=== PATIENT | male | born 1945 | race Caucasian/White ===

== ENCOUNTER → 2016-08-14 | Outpatient (CLI) | payer BC ==
[~2016-08-14] MED LIST: ASPI1TAB48 PO; CARV12.52 PO; CYAN10005 PO; ECON0.05 TD; GLIM2TAB2 PO; INSHNI SC; LIRA18IN INJ; LOSA50TA6 PO; LPT/40 PO; METF1000 PO; OXYC-57 PO
[2016-08-14 10:17] LABS: ALT/SGPT 22 U/L (12-78); BLOOD UREA NITROGEN 22 mg/dl (7-18); CALCIUM 9.1 mg/dl (8.5-10.1); CARBON DIOXIDE 28 mmol/L (21-32); CHLORIDE 105 mmol/L (98-107); CHOLESTEROL 123 mg/dl (0-200); GLUCOSE 172 mg/dl (70-99); POTASSIUM 4.4 mmol/L (3.5-5.1); SODIUM 140 mmol/L (136-145); TRIGLYCERIDES 147 mg/dl (0-150); VERY LOW DENSITY LIPOPROT CALC 29 mg/dl
[2016-08-14 10:28] LABS: ALB/GLOB RATIO 0.9 (0.9-2); ALKALINE PHOSPHATASE 60 U/L (45-117); AST/SGOT 19 U/L (15-37); CHOLESTEROL/HDL RATIO 3.6; HDL CHOLESTEROL 34 mg/dl; LDL CHOLESTEROL CALCULATED 60 mg/dl
[2016-08-14 10:39] LABS: RATIO 8.1 mcg/mg (0-30.0)
[2016-08-14 11:09] LABS: ESTIMATED AVERAGE GLUCOSE 157 mg/dl; HA1C FLAG Normal (Normal)
== END | disposition home or self-care (01) ==
LOC: C.LAB1850 08:42
PROVIDERS: ATTEND Nurse Practitioner Adult Health
DX: I10 Essential (primary) hypertension (principal); E78.5 Hyperlipidemia, unspecified; E11.8 Type 2 diabetes mellitus with unspecified complications; E55.9 Vitamin D deficiency, unspecified

== ENCOUNTER → 2016-11-22 | Outpatient (CLI) | payer BC ==
[2016-11-22 10:07] LABS: BASO % 0.6 %; BASO ABS # 0.05 K/uL (0-0.2); COMPLETE YES; EOS % 3.9 %; HEMATOCRIT 40.8 % (42-52); IG% 0.2 %; LYMPH % 25.7 %; LYMPH ABS # 2.32 K/uL (1.2-3.4); MEAN CELL VOLUME 94.4 fL (80-100); MEAN CORPUSCULAR HEMOGLOBIN 31.7 pg (25-34); MEAN CORPUSCULAR HGB CONC 33.6 g/dl (32-36); MEAN PLATELET VOLUME 9.4 fL (7.4-10.4); NEUT % 57.6 %; PLATELET COUNT 302 K/uL (130-400); RED BLOOD COUNT 4.32 M/uL (4.7-6.1); WHITE BLOOD COUNT 9.01 K/uL (4.8-10.8)
[2016-11-22 10:22] LABS: ESTIMATED AVERAGE GLUCOSE 148 mg/dl; HA1C FLAG Normal (Normal)
== END | disposition home or self-care (01) ==
LOC: C.LAB1850 09:29
PROVIDERS: ATTEND Internal Medicine
DX: D64.9 Anemia, unspecified (principal); E11.49 Type 2 diabetes mellitus with other diabetic neurological complication

== ENCOUNTER → 2017-02-21 | Outpatient (CLI) | payer BC ==
[2017-02-21 14:40] LABS: BASO % 0.6 %; BASO ABS # 0.05 K/uL (0-0.2); COMPLETE YES; EOS % 5.1 %; HEMATOCRIT 45.3 % (42-52); IG% 0.5 %; LYMPH % 28.1 %; LYMPH ABS # 2.37 K/uL (1.2-3.4); MEAN CELL VOLUME 94.4 fL (80-100); MEAN CORPUSCULAR HGB CONC 32.9 g/dl (32-36); MONO % 10.3 %; NEUT % 55.4 %; PLATELET COUNT 255 K/uL (130-400); WHITE BLOOD COUNT 8.44 K/uL (4.8-10.8)
[2017-02-21 15:01] LABS: ESTIMATED AVERAGE GLUCOSE 148 mg/dl; HA1C FLAG Normal (Normal)
[2017-02-21 15:11] LABS: ALT/SGPT 16 U/L (12-78); AST/SGOT 17 U/L (15-37); BLOOD UREA NITROGEN 14 mg/dl (7-18); BUN/CREATININE RATIO 12.9 (10-20); CALCIUM 9.4 mg/dl (8.5-10.1); CARBON DIOXIDE 32 mmol/L (21-32); CHLORIDE 101 mmol/L (98-107); GLUCOSE 230 mg/dl (70-99); POTASSIUM 4.8 mmol/L (3.5-5.1); SODIUM 136 mmol/L (136-145)
[2017-02-21 15:13] LABS: ALB/GLOB RATIO 0.8 (0.9-2); ALKALINE PHOSPHATASE 73 U/L (45-117)
== END | disposition home or self-care (01) ==
LOC: C.LAB1850 13:15
PROVIDERS: ATTEND Nurse Practitioner Adult Health
DX: E11.49 Type 2 diabetes mellitus with other diabetic neurological complication (principal); D64.9 Anemia, unspecified; Z79.4 Long term (current) use of insulin

== ENCOUNTER → 2017-05-24 | Outpatient (CLI) | payer BC ==
[2017-05-24 09:43] LABS: HEMOGLOBIN A1C 6.7 % (4.5-5.6)
[2017-05-24 09:45] LABS: ALBUMIN 3.5 gm/dl (3.4-5.0); ALT/SGPT 17 U/L (12-78); AST/SGOT 16 U/L (15-37); BLOOD UREA NITROGEN 20 mg/dl (7-18); CALCIUM 9.2 mg/dl (8.5-10.1); CARBON DIOXIDE 30 mmol/L (21-32); CREATININE 1.03 mg/dl (0.60-1.40); GLUCOSE 60 mg/dl (70-99); POTASSIUM 4.7 mmol/L (3.5-5.1); SODIUM 137 mmol/L (136-145)
[2017-05-24 09:50] LABS: CREATININE RANDOM URINE < 13.0 mg/dl
[2017-05-24 09:56] LABS: ALKALINE PHOSPHATASE 72 U/L (45-117); CHOLESTEROL 101 mg/dl (0-200); LDL CHOLESTEROL CALCULATED 44 mg/dl; TOTAL PROTEIN 7.9 gm/dl (6.4-8.2)
== END | disposition home or self-care (01) ==
LOC: C.LAB1850 07:03
PROVIDERS: ATTEND Internal Medicine
DX: E11.49 Type 2 diabetes mellitus with other diabetic neurological complication (principal); Z79.4 Long term (current) use of insulin; E55.9 Vitamin D deficiency, unspecified; Z11.59 Encounter for screening for other viral diseases

== ENCOUNTER 2018-08-20 23:05 | Inpatient (IN) ==
[2018-08-20] MEDS ORDERED: ALBUT/IPRATROP 3MG/0.5MG NEB 3 ML VIAL NEB STA (23:25)
[2018-08-20 23:42] LABS: Basophils # (auto) 0.03 K/uL (0-0.2); Basophils % (auto) 0.4 %; Eosinophils # (auto) 0.04 K/uL (0-0.5); Eosinophils % (auto) 0.6 %; Hematocrit (blood only) 42.4 % (42-52); Hemoglobin 13.9 g/dL (14.0-18.0); Immature Granulocytes # (auto) 0.01 K/uL (0.00-0.02); Immature Granulocytes % (auto) 0.1 %; Lymphocytes # (auto) 1.24 K/uL (1.2-3.4); Lymphocytes % (auto) 17.4 %; Mean Corpuscular Hgb Conc 32.8 g/dL (32-36); Mean Corpuscular Volume 95.5 fL (80-100); Mean Platelet Volume 9.8 fL (7.4-10.4); Monocytes # (auto) 1.12 K/uL (0.11-0.59); Monocytes % (auto) 15.7 %; Neutrophils # (auto) 4.69 K/uL (1.4-6.5); Neutrophils % (auto) 65.8 %; Platelet Count 186 K/uL (130-400); RDW Coefficient of Variation 13.2 % (11.5-14.5); RDW Standard Deviation 45.9 fL (36.4-46.3); Red Blood Count 4.44 M/uL (4.7-6.1); White Blood Count 7.13 K/uL (4.8-10.8)
[2018-08-21 00:29] LABS: INR 1.1 (0.9-1.1); Partial Thromboplastin Time 26.1 Seconds (21.0-31.0); Prothrombin Time 11.1 Seconds (9.0-12.0)
[2018-08-21 00:30] LABS: Alanine Aminotransferase 21 U/L (12-78); Albumin Globulin Ratio 0.7 (0.9-2); Albumin Level 3.4 gm/dl (3.4-5.0); Alkaline Phosphatase 67 U/L (45-117); BUN Creatinine Ratio 19.1 (10-20); Bilirubin,Total 0.4 mg/dl (0.2-1); Blood Urea Nitrogen 26 mg/dl (7-18); Calcium 8.6 mg/dl (8.5-10.1); Carbon Dioxide 30 mmol/L (21-32); Chloride 102 mmol/L (98-107); Est GFR (African American) 60.4; Est GFR (Non-African American) 52.1; Glucose 54 mg/dl (70-99); NT Pro B Type Natriuretic Pept 184 pg/ml (0-900); Sodium 137 mmol/L (136-145); Total Protein 8.4 gm/dl (6.4-8.2); Troponin I < 0.015 ng/ml (0-0.045)
[2018-08-21 00:36] LABS: D Dimer 650 ug/L FEU (0-500)
[2018-08-21 00:38] LABS: Potassium 4.4 mmol/L (3.5-5.1)
[2018-08-21 00:43] LABS: Magnesium 1.9 mg/dl (1.8-2.4)
[2018-08-21] MEDS ORDERED: methylPREDNISolone 125 MG/2 ML VIAL IV STA (01:45)
[2018-08-21] MEDS ORDERED: ALBUT/IPRATROP 3MG/0.5MG NEB 3 ML VIAL NEB STA (01:45)
[2018-08-21] MEDS ORDERED: OPTIRAY 320 125ml IV PRN (01:47)
--- NOTE | 2018-08-21 01:59 | Emergency Department Note ---
Entered by Preston Rankin acting as a scribe for Eber Sun DO History of Present Illness General Chief complaint: Shortness of Breath/Dyspnea Stated complaint: CHEST PAIN, SOB, B/L LEG SWELLING, WEAKNESS Time Seen by Provider: 08/20/18 23:22 Source: patient and family (brother) History of Present Illness Provider complaint: SOB Onset (ago): week(s) 3 Location: chest Pain Consistency: + constant Maximum Pain Intensity: 3 Current Pain Intensity: 3 Associated symptoms: + other (Abd pain and leg swelling) Treatments prior to arrival: none The patient is a 73 year old male with a history with a history of COPD who presents to the Emergency Room with complaints of shortness of breath that began 3 weeks ago. The patient notes that he also has abd pain and leg swelling. The patient denies fevers and orthopnea. The patient's brother notes that he has been short of breath since he started his new medication. The patient adds that he does not wear oxygen at home and denies any history of blood clots. He denies ever being on a steroid. Home Medications Home Medications Medication Instructions Recorded Confirmed Type aspirin 81 mg PO DAILY 08/21/18 08/21/18 History atorvastatin 40 mg PO DAILY 08/21/18 08/21/18 History carvedilol 12.5 mg PO BID 08/21/18 08/21/18 History cholecalciferol (vitamin D3) 1,000 unit PO DAILY 08/21/18 08/21/18 History [Vitamin D3] cyanocobalamin (vitamin B-12) 500 mcg PO DAILY 08/21/18 08/21/18 History [Vitamin B-12] furosemide 20 mg PO DAILY PRN 08/21/18 08/21/18 History gabapentin 300 mg PO HS 08/21/18 08/21/18 History guaifenesin [Mucinex] 600 mg PO DAILY 08/21/18 08/21/18 History insulin NPH isoph U-100 human 50 unit SUBCUT HS 08/21/18 08/21/18 History [Humulin N NPH U-100 Insulin] insulin aspart U-100 [Novolog 0 unit SUBCUT UD 08/21/18 08/21/18 History U-100 Insulin aspart] liraglutide [Victoza 3-Kalpesh] 0.6 mcg SUBCUT DAILY 08/21/18 08/21/18 History losartan 100 mg PO DAILY 08/21/18 08/21/18 History metformin 1,000 mg PO BID 08/21/18 08/21/18 History silodosin [Rapaflo] 8 mg PO QPM 08/21/18 08/21/18 History tiotropium bromide [Spiriva 2 puff INHALATION DAILY 08/21/18 08/21/18 History Respimat] Allergies Allergy/AdvReac Type Severity Reaction Status Date / Time No Known Allergies Allergy Unverified 08/21/18 02:34 Past Med/Surg History Social History Preferred Language: Mexican Communication Ability: Effective Sex Worker Or Escort Required: No Beliefs That Will Affect Care: None Current Living Situation: Alone Other Information That Helps Us Care for You: No Feels Safe at Home: Yes Safety Concerns: Feels Safe At This Time Smoking Status: Former smoker Hx Alcohol Use: No Hx Substance Use: No Review of Systems See HPI for pertinent positives & negatives. and A total of 10 systems reviewed and were otherwise negative Physical Exam Vital Signs Vital Signs - 24 hr 08/20/18 23:08 08/20/18 23:27 08/20/18 23:33 Temperature 37.1 C Temperature Source Oral Sepsis Recent Fever Within 48 Hours No Sepsis Action Taken by Nursing No Action Required Pulse Rate 89 Pulse Rate [Apical] Pulse Rate from SpO2 Sensor Respiratory Rate 22 Respiratory Effort / Characteristics Respiratory Depth Normal Respiratory Pattern Blood Pressure 136/81 Blood Pressure [Left Arm] Blood Pressure [Right Arm] Blood Pressure Mean 99 Blood Pressure Mean [Left Arm] Blood Pressure Mean [Right Arm] Blood Pressure Position [Right Arm] Pulse Oximetry 81 L 93 81 L Oxygen Delivery Method Room Air Nasal Cannula Room Air Oxygen Flow Rate 4 08/20/18 23:39 08/21/18 00:14 08/21/18 00:57 Temperature Temperature Source Sepsis Recent Fever Within 48 Hours Sepsis Action Taken by Nursing Pulse Rate 85 Pulse Rate [Apical] 83 82 Pulse Rate from SpO2 Sensor 83 Respiratory Rate 21 18 23 Respiratory Effort / Characteristics Respiratory Depth Respiratory Pattern Blood Pressure 101/62 Blood Pressure [Left Arm] Blood Pressure [Right Arm] 100/78 129/63 Blood Pressure Mean 75 Blood Pressure Mean [Left Arm] Blood Pressure Mean [Right Arm] 85 85 Blood Pressure Position [Right Arm] Pulse Oximetry 94 97 93 Oxygen Delivery Method Nebulizer Nasal Cannula Nasal Cannula Oxygen Flow Rate 7 4 4 08/21/18 01:53 08/21/18 03:29 08/21/18 03:41 Temperature Temperature Source Sepsis Recent Fever Within 48 Hours Sepsis Action Taken by Nursing Pulse Rate Pulse Rate [Apical] 83 83 Pulse Rate from SpO2 Sensor Respiratory Rate 24 20 Respiratory Effort / Characteristics Respiratory Depth Respiratory Pattern Blood Pressure Blood Pressure [Left Arm] Blood Pressure [Right Arm] 141/58 H 94/69 L 104/53 L Blood Pressure Mean Blood Pressure Mean [Left Arm] Blood Pressure Mean [Right Arm] 85 77 70 Blood Pressure Position [Right Arm] Pulse Oximetry 94 91 Oxygen Delivery Method Nasal Cannula Nasal Cannula Oxygen Flow Rate 4 4 08/21/18 04:08 08/21/18 05:24 08/21/18 06:48 Temperature 36.9 C 36.9 C Temperature Source Oral Oral Sepsis Recent Fever Within 48 Hours Sepsis Action Taken by Nursing Pulse Rate Pulse Rate [Apical] 80 75 Pulse Rate from SpO2 Sensor Respiratory Rate 20 22 Respiratory Effort / Characteristics SOB on Exertion Respiratory Depth Respiratory Pattern Tachypnea Blood Pressure Blood Pressure [Left Arm] 128/67 Blood Pressure [Right Arm] 156/73 H Blood Pressure Mean Blood Pressure Mean [Left Arm] 87 Blood Pressure Mean [Right Arm] 100 Blood Pressure Position [Right Arm] Sitting Pulse Oximetry 90 92 Oxygen Delivery Method Nasal Cannula Nasal Cannula Nasal Cannula Oxygen Flow Rate 6 6 6 08/21/18 07:17 08/21/18 08:00 08/21/18 11:20 Temperature Temperature Source Sepsis Recent Fever Within 48 Hours Sepsis Action Taken by Nursing Pulse Rate Pulse Rate [Apical] 82 81 Pulse Rate from SpO2 Sensor Respiratory Rate 22 22 Respiratory Effort / Characteristics Spontaneous Non-Labored Spontaneous SOB on Exertion Spontaneous Respiratory Depth Normal Respiratory Pattern Regular Blood Pressure Blood Pressure [Left Arm] Blood Pressure [Right Arm] Blood Pressure Mean Blood Pressure Mean [Left Arm] Blood Pressure Mean [Right Arm] Blood Pressure Position [Right Arm] Pulse Oximetry 90 90 Oxygen Delivery Method Nasal Cannula Nasal Cannula Nasal Cannula Oxygen Flow Rate 6 6 6 GENERAL: Patient is awake, alert, and in no acute distress.Patient is resting comfortably and showing no signs of anxiety EYES: The conjunctivae are clear. The pupils are round and reactive. EARS, NOSE, MOUTH AND THROAT: The nose is without any evidence of any deformity. Mucous membranes are moist.Tongue is midline NECK: The neck is nontender and supple. RESPIRATORY: Lungs diminished throughout with excretory wheezing in both upper lung garcia, there were slight retractions noted. CARDIOVASCULAR: Regular rate and rhythm noted. There no murmurs rubs or gallops normal S1 normal S2 GASTROINTESTINAL: The abdomen is soft. Bowel sounds are present in all quadrants. Abdomen is nontender. MUSCULOSKELETAL/EXTREMITIES: There is no evidence of gross deformity. Full range of motion is noted in the hips and shoulders. SKIN: There is no obvious evidence of any rash. There are no petechiae, pallor or cyanosis noted.Pedal edema bilaterally. NEUROLOGIC: Patient is awake alert and oriented x3. Course 2321: The patient was evaluated in room C03, and a complete history and physical examination were performed. 0156: I reviewed the patient's case with Dr. Ekta Lorenzana-Hospitalist. She will evaluate the patient for further management. Administered Medications Albuterol (Duoneb) 3 ml NEB Q4R ABDULLAHI Stop: 09/20/18 07:59 Last Admin: 08/21/18 11:20 Dose: 3 ml Documented by: [id number] Admin: 08/21/18 07:17 Dose: 3 ml Documented by: [id number] Aspirin (Ecotrin Ectab) 81 mg PO DAILY ABDULLAHI Stop: 09/20/18 08:59 Last Admin: 08/21/18 08:45 Dose: 81 mg Documented by: [id number] Atorvastatin Calcium (Lipitor) 40 mg PO DAILY ABDULLAHI Stop: 09/20/18 08:59 Last Admin: 08/21/18 08:45 Dose: 40 mg Documented by: [id number] Carvedilol (Coreg) 12.5 mg PO BID ABDULLAHI Stop: 09/20/18 08:59 Last Admin: 08/21/18 08:45 Dose: 12.5 mg Documented by: [id number] Enoxaparin Sodium (Lovenox) 40 mg SQ Q24H ABDULLAHI Stop: 09/20/18 08:59 Last Admin: 08/21/18 08:47 Dose: Not Given Documented by: [id number] Furosemide (Lasix) 20 mg PO DAILY PRN PRN Reason: LLE EDEMA Stop: 09/20/18 04:45 Last Admin: 08/21/18 08:45 Dose: 20 mg Documented by: [id number] Guaifenesin (Mucinex) 1,200 mg PO Q12 ABDULLAHI Stop: 09/20/18 08:59 Last Admin: 08/21/18 08:45 Dose: 1,200 mg Documented by: [id number] Methylprednisolone 40 mg/ (Syringe) 0.64 mls @ 1.5 mls/min IV Q8H ABDULLAHI Stop: 09/20/18 09:59 Last Admin: 08/21/18 10:42 Dose: 1.5 mls/min Documented by: [id number] Insulin Aspart (Novolog Flexpen) 0 units SC ACHS ABDULLAHI Stop: 09/20/18 07:29 Last Admin: 08/21/18 12:43 Dose: 10 units Documented by: [id number] Cosigned by: [id number] Admin: 08/21/18 08:44 Dose: 5 units Documented by: [id number] Cosigned by: [id number] Losartan Potassium (Cozaar) 100 mg PO DAILY ABDULLAHI Stop: 09/20/18 08:59 Last Admin: 08/21/18 08:45 Dose: 100 mg Documented by: [id number] Miscellaneous (Order Awaiting Action) 1 ea N/A QS [facility] Stop: 09/20/18 07:59 Last Admin: 08/21/18 08:45 Dose: Not Given Documented by: [id number] Miscellaneous (Order Awaiting Action) 1 ea N/A QS [facility] Stop: 09/20/18 07:59 Last Admin: 08/21/18 08:44 Dose: Not Given Documented by: [id number] Discontinued Medications Albuterol (Duoneb) 3 ml NEB NOW STA Stop: 08/20/18 23:26 Last Admin: 08/20/18 23:37 Dose: 3 ml Documented by: [id number] Albuterol (Duoneb) 3 ml NEB NOW STA Stop: 08/21/18 01:46 Last Admin: 08/21/18 01:56 Dose: 3 ml Documented by: [id number] Azithromycin 500 mg/ Dextrose 255 mls @ 125 mls/hr IV ONE ONE Stop: 08/21/18 07:32 Last Infusion: 08/21/18 08:00 Dose: 0 mls/hr Documented by: [id number] Admin: 08/21/18 05:54 Dose: 125 mls/hr Documented by: [id number] Influenza Virus Vaccine Quadrival (Flucelvax Quad Vaccine) 0.5 ml IM .ONCE ONE Stop: 08/21/18 06:31 Last Admin: 08/21/18 09:56 Dose: Not Given Documented by: [id number] Ioversol (Optiray 320 125ml) 125 ml IV ONCE PRN PRN Reason: Interaction Checking Stop: 08/25/18 01:46 Last Admin: 08/21/18 01:47 Dose: 119 ml Documented by: [id number] Methylprednisolone (Solumedrol) 125 mg IV NOW STA Stop: 08/21/18 01:46 Last Admin: 08/21/18 01:56 Dose: 125 mg Documented by: [id number] Pneumococcal Polyvalent Vaccine (Pneumovax-23) 25 mcg IM .ONCE ONE Stop: 08/21/18 06:31 Last Admin: 08/21/18 09:56 Dose: Not Given Documented by: [id number] Medical Decision Making Differential Diagnosis Differential diagnosis: Etiologies such as infections, reactive airway disease, pneumonia, pneumothorax, COPD, CHF, cardiac ischemia, pulmonary embolism, musculoskeletal, gastrointestinal, as well as others were entertained. Medical Records Attestation: I reviewed the patient's medical records. Home Medications Current Medication List: was personally reviewed by me Laboratory Data Attestation: I reviewed the patient's lab results. Result diagrams: 08/20/18 23:27 08/21/18 00:05 Lab Results 08/20/18 08/20/18 08/20/18 Range/Units 23:27 23:27 23:27 WBC 7.13 (4.8-10.8) K/uL RBC 4.44 L (4.7-6.1) M/uL Hgb 13.9 L (14.0-18.0) g/dL Hct 42.4 (42-52) % MCV 95.5 (80-100) fL MCH 31.3 (25-34) pg MCHC 32.8 (32-36) g/dL RDW Std Deviation 45.9 (36.4-46.3) fL RDW Coeff of Pritesh 13.2 (11.5-14.5) % Plt Count 186 (130-400) K/uL MPV 9.8 (7.4-10.4) fL Immature Gran % (Auto) 0.1 % Neut % (Auto) 65.8 % Lymph % (Auto) 17.4 % Bond % (Auto) 15.7 % Eos % (Auto) 0.6 % Baso % (Auto) 0.4 % Immature Gran # (Auto) 0.01 (0.00-0.02) K/uL Neut # (Auto) 4.69 (1.4-6.5) K/uL Lymph # (Auto) 1.24 (1.2-3.4) K/uL Bond # (Auto) 1.12 H (0.11-0.59) K/uL Eos # (Auto) 0.04 (0-0.5) K/uL Baso # (Auto) 0.03 (0-0.2) K/uL PT Cancelled INR Cancelled APTT Cancelled PTT Ratio Cancelled D-Dimer (0-500) ug/L FEU Sodium 137 (136-145) mmol/L Potassium (3.5-5.1) mmol/L Chloride 102 (98-107) mmol/L Carbon Dioxide 30 (21-32) mmol/L Anion Gap 5.0 (3-11) BUN 26 H (7-18) mg/dl Creatinine 1.35 (0.6-1.4) mg/dl Est Cr Clr Drug Dosing 63.0 ml/min Est GFR ( Amer) 60.4 Est GFR (Non-Af Amer) 52.1 BUN/Creatinine Ratio 19.1 (10-20) Glucose 54 L (70-99) mg/dl POC Glucose (70-99) Calcium 8.6 (8.5-10.1) mg/dl Phosphorus (2.5-4.9) mg/dl Magnesium (1.8-2.4) mg/dl Total Bilirubin 0.4 (0.2-1) mg/dl AST (15-37) U/L ALT 21 (12-78) U/L Alkaline Phosphatase 67 (45-117) U/L Troponin I < 0.015 (0-0.045) ng/ml NT-Pro-B Natriuret Pep 184 (0-900) pg/ml Total Protein 8.4 H (6.4-8.2) gm/dl Albumin 3.4 (3.4-5.0) gm/dl Globulin 5.0 H (2.5-4.0) gm/dl Albumin/Globulin Ratio 0.7 L (0.9-2) Urine Color Urine Appearance (Clear) Urine pH (4.5-7.5) Ur Specific [place] (1.000-1.030) Urine Protein (Negative) Urine Glucose (UA) (Negative) Urine Ketones (Negative) Urine Blood (Negative) Urine Nitrite (Negative) Urine Bilirubin (Negative) Urine Urobilinogen (Negative) Ur Leukocyte Esterase (Negative) Urine WBC (Auto) (0-5) /hpf Urine RBC (Auto) (0-4) /hpf U Hyaline Cast (Auto) (0-5) /lpf U Epithel Cells (Auto) (0-5) /lpf Urine Bacteria (Auto) (Negative) Influenza Type A Ag (Neg) Influenza Type B Ag (Neg) 08/21/18 08/21/18 08/21/18 Range/Units 00:04 00:05 01:51 WBC (4.8-10.8) K/uL RBC (4.7-6.1) M/uL Hgb (14.0-18.0) g/dL Hct (42-52) % MCV (80-100) fL MCH (25-34) pg MCHC (32-36) g/dL RDW Std Deviation (36.4-46.3) fL RDW Coeff of Pritesh (11.5-14.5) % Plt Count (130-400) K/uL MPV (7.4-10.4) fL Immature Gran % (Auto) % Neut % (Auto) % Lymph % (Auto) % Bond % (Auto) % Eos % (Auto) % Baso % (Auto) % Immature Gran # (Auto) (0.00-0.02) K/uL Neut # (Auto) (1.4-6.5) K/uL Lymph # (Auto) (1.2-3.4) K/uL Bond # (Auto) (0.11-0.59) K/uL Eos # (Auto) (0-0.5) K/uL Baso # (Auto) (0-0.2) K/uL PT 11.1 INR 1.1 APTT 26.1 PTT Ratio 1.0 D-Dimer 650 H* (0-500) ug/L FEU Sodium (136-145) mmol/L Potassium 4.4 (3.5-5.1) mmol/L Chloride (98-107) mmol/L Carbon Dioxide (21-32) mmol/L Anion Gap (3-11) BUN (7-18) mg/dl Creatinine (0.6-1.4) mg/dl Est Cr Clr Drug Dosing ml/min Est GFR ( Amer) Est GFR (Non-Af Amer) BUN/Creatinine Ratio (10-20) Glucose (70-99) mg/dl POC Glucose 74 (70-99) Calcium (8.5-10.1) mg/dl Phosphorus (2.5-4.9) mg/dl Magnesium 1.9 (1.8-2.4) mg/dl Total Bilirubin (0.2-1) mg/dl AST 27 (15-37) U/L ALT (12-78) U/L Alkaline Phosphatase (45-117) U/L Troponin I (0-0.045) ng/ml NT-Pro-B Natriuret Pep (0-900) pg/ml Total Protein (6.4-8.2) gm/dl Albumin (3.4-5.0) gm/dl Globulin (2.5-4.0) gm/dl Albumin/Globulin Ratio (0.9-2) Urine Color Urine Appearance (Clear) Urine pH (4.5-7.5) Ur Specific [place] (1.000-1.030) Urine Protein (Negative) Urine Glucose (UA) (Negative) Urine Ketones (Negative) Urine Blood (Negative) Urine Nitrite (Negative) Urine Bilirubin (Negative) Urine Urobilinogen (Negative) Ur Leukocyte Esterase (Negative) Urine WBC (Auto) (0-5) /hpf Urine RBC (Auto) (0-4) /hpf U Hyaline Cast (Auto) (0-5) /lpf U Epithel Cells (Auto) (0-5) /lpf Urine Bacteria (Auto) (Negative) Influenza Type A Ag (Neg) Influenza Type B Ag (Neg) 08/21/18 08/21/18 08/21/18 Range/Units 02:46 03:42 04:30 WBC (4.8-10.8) K/uL RBC (4.7-6.1) M/uL Hgb (14.0-18.0) g/dL Hct (42-52) % MCV (80-100) fL MCH (25-34) pg MCHC (32-36) g/dL RDW Std Deviation (36.4-46.3) fL RDW Coeff of Pritesh (11.5-14.5) % Plt Count (130-400) K/uL MPV (7.4-10.4) fL Immature Gran % (Auto) % Neut % (Auto) % Lymph % (Auto) % Bond % (Auto) % Eos % (Auto) % Baso % (Auto) % Immature Gran # (Auto) (0.00-0.02) K/uL Neut # (Auto) (1.4-6.5) K/uL Lymph # (Auto) (1.2-3.4) K/uL Bond # (Auto) (0.11-0.59) K/uL Eos # (Auto) (0-0.5) K/uL Baso # (Auto) (0-0.2) K/uL PT INR APTT PTT Ratio D-Dimer (0-500) ug/L FEU Sodium (136-145) mmol/L Potassium (3.5-5.1) mmol/L Chloride (98-107) mmol/L Carbon Dioxide (21-32) mmol/L Anion Gap (3-11) BUN (7-18) mg/dl Creatinine (0.6-1.4) mg/dl Est Cr Clr Drug Dosing ml/min Est GFR ( Amer) Est GFR (Non-Af Amer) BUN/Creatinine Ratio (10-20) Glucose (70-99) mg/dl POC Glucose 133 H (70-99) Calcium (8.5-10.1) mg/dl Phosphorus (2.5-4.9) mg/dl Magnesium (1.8-2.4) mg/dl Total Bilirubin (0.2-1) mg/dl AST (15-37) U/L ALT (12-78) U/L Alkaline Phosphatase (45-117) U/L Troponin I (0-0.045) ng/ml NT-Pro-B Natriuret Pep (0-900) pg/ml Total Protein (6.4-8.2) gm/dl Albumin (3.4-5.0) gm/dl Globulin (2.5-4.0) gm/dl Albumin/Globulin Ratio (0.9-2) Urine Color Yellow Urine Appearance Clear (Clear) Urine pH 5.0 (4.5-7.5) Ur Specific [place] > 1.045 H (1.000-1.030) Urine Protein Negative (Negative) Urine Glucose (UA) Negative (Negative) Urine Ketones Negative (Negative) Urine Blood 3+ H (Negative) Urine Nitrite Negative (Negative) Urine Bilirubin Negative (Negative) Urine Urobilinogen Negative (Negative) Ur Leukocyte Esterase Negative (Negative) Urine WBC (Auto) 0 (0-5) /hpf Urine RBC (Auto) 10-30 H (0-4) /hpf U Hyaline Cast (Auto) 0 (0-5) /lpf U Epithel Cells (Auto) 0-5 (0-5) /lpf Urine Bacteria (Auto) Negative (Negative) Influenza Type A Ag Neg for Influ A (Neg) Influenza Type B Ag Neg for Influ B (Neg) 08/21/18 08/21/18 08/21/18 Range/Units 04:35 05:08 12:27 WBC (4.8-10.8) K/uL RBC (4.7-6.1) M/uL Hgb (14.0-18.0) g/dL Hct (42-52) % MCV (80-100) fL MCH (25-34) pg MCHC (32-36) g/dL RDW Std Deviation (36.4-46.3) fL RDW Coeff of Pritesh (11.5-14.5) % Plt Count (130-400) K/uL MPV (7.4-10.4) fL Immature Gran % (Auto) % Neut % (Auto) % Lymph % (Auto) % Bond % (Auto) % Eos % (Auto) % Baso % (Auto) % Immature Gran # (Auto) (0.00-0.02) K/uL Neut # (Auto) (1.4-6.5) K/uL Lymph # (Auto) (1.2-3.4) K/uL Bond # (Auto) (0.11-0.59) K/uL Eos # (Auto) (0-0.5) K/uL Baso # (Auto) (0-0.2) K/uL PT INR APTT PTT Ratio D-Dimer (0-500) ug/L FEU Sodium (136-145) mmol/L Potassium (3.5-5.1) mmol/L Chloride (98-107) mmol/L Carbon Dioxide (21-32) mmol/L Anion Gap (3-11) BUN (7-18) mg/dl Creatinine (0.6-1.4) mg/dl Est Cr Clr Drug Dosing ml/min Est GFR ( Amer) Est GFR (Non-Af Amer) BUN/Creatinine Ratio (10-20) Glucose (70-99) mg/dl POC Glucose 119 H 246 H (70-99) Calcium (8.5-10.1) mg/dl Phosphorus 3.3 (2.5-4.9) mg/dl Magnesium (1.8-2.4) mg/dl Total Bilirubin (0.2-1) mg/dl AST (15-37) U/L ALT (12-78) U/L Alkaline Phosphatase (45-117) U/L Troponin I (0-0.045) ng/ml NT-Pro-B Natriuret Pep (0-900) pg/ml Total Protein (6.4-8.2) gm/dl Albumin (3.4-5.0) gm/dl Globulin (2.5-4.0) gm/dl Albumin/Globulin Ratio (0.9-2) Urine Color Urine Appearance (Clear) Urine pH (4.5-7.5) Ur Specific [place] (1.000-1.030) Urine Protein (Negative) Urine Glucose (UA) (Negative) Urine Ketones (Negative) Urine Blood (Negative) Urine Nitrite (Negative) Urine Bilirubin (Negative) Urine Urobilinogen (Negative) Ur Leukocyte Esterase (Negative) Urine WBC (Auto) (0-5) /hpf Urine RBC (Auto) (0-4) /hpf U Hyaline Cast (Auto) (0-5) /lpf U Epithel Cells (Auto) (0-5) /lpf Urine Bacteria (Auto) (Negative) Influenza Type A Ag (Neg) Influenza Type B Ag (Neg) Imaging Data Attestation: I personally reviewed and interpreted this imaging study as follow s: My Impression: CXR: melchor size is normal, scarring at left base, no cute disease, no definite infiltrate Radiologist's Impression: CT angiography of the chest was obtained to the emergency department due to hypoxia. The report was reviewed. Preliminary Findings Only See Final Report For Complete Findings CTA CHEST: No prior CT. Chest x-ray from 08/20 without report. There is prominent motion artifact limiting evaluation. Cannot exclude PE in regions of artifact. No large central PE. Suggestion of bronchial wall thickening. No consolidation. No effusions. No evidence for edema. Borderline mediastinal nodes and right hilar adenopathy. Small lung nodules. Radiologist: Morales Mcghee M.D. Study ready at 01:48 and initial results transmitted at 02:24 ECG Data Attestation: I personally reviewed and interpreted this ECG as follows: Indication: SOB/dyspnea Rate (beats per minute): 83 Rhythm: normal sinus Findings: + RBBB; no PAC, no PVC and no ectopy Comparison ECG Date: from (07/06/00) Change: the following changes noted (RBBB is new) Blood Pressure Blood Pressure Findings: Elevated blood pressure Blood Pressure Disposition: further management by hospitalist CHRISTIE Dumont The patient is a 73-year-old male who presented to the emergency department with his brother for an evaluation of shortness of breath. The patient is a history of COPD and has tobacco history. The patient was treated with bronchodilator therapy as well as IV steroids. I discussed the patient's laboratory and radiographic studies with him. There is no definite signs of pneumonia. Given his lack of findings on chest x-ray I was concerned this could represent a pulmonary embolism. The patient did have very significant lung findings on physical exam. The patient was reevaluated multiple times. He responded well to the treatment as well as supplement oxygen. I discussed the patient's condition with him I also discussed his case with the on-call [facility] hospitalist. They have agreed to evaluate the patient in the emergency department for further management and disposition. Impression & Plan COPD (chronic obstructive pulmonary disease), PRICE (dyspnea on exertion), Hypoxia Discharge Plan Visit Data *Final* Discharge Date/Time: 08/21/18 03:52 Chief Complaint: Shortness of Breath/Dyspnea Stated Complaint: CHEST PAIN, SOB, B/L LEG SWELLING, WEAKNESS ED Provider: Eber Sun Discharge Problem: COPD (chronic obstructive pulmonary disease), PRICE (dyspnea on exertion), Hypoxia Patient Disposition: Admitted As Inpatient Discharge Instructions Interventions: ED Discharge Assessment Last Done: 08/21/18 03:52 Discharge Problem: COPD (chronic obstructive pulmonary disease) Qualifiers: COPD type: COPD with acute exacerbation Qualified Code(s): J44.1 - Chronic obstructive pulmonary disease with (acute) exacerbation The scribe's documentation has been prepared under my direction and personally reviewed by me in its entirety. I confirm that the note above accurately refl ects all work, treatment, procedures, and medical decision making performed by me.
[2018-08-21 02:56] LABS: Appearance Urine Clear (Clear); Bacteria Urine Automated Negative (Negative); Bilirubin Urine Negative (Negative); Blood Urine 3+ (Negative); Cast Urine Automated 0 /lpf (0-5); Color Urine Yellow; Epithelial Cell Urine Auto 0-5 /lpf (0-5); Glucose Urine UA Negative (Negative); Ketones Urine Negative (Negative); Leukocyte Esterase Urine Negative (Negative); Nitrite Urine Negative (Negative); Protein Urine Negative (Negative); Specific Gravity Urine > 1.045 (1.000-1.030); Urobilinogen Urine Negative (Negative); WBC Urine Automated 0 /hpf (0-5)
--- NOTE | 2018-08-21 03:17 | History & Physical Report ---
Date of Service August 21, 2018 Assessment & Plan (1) PRICE (dyspnea on exertion): Patient with 2.5 weeks of progressive SOB/PRICE, increase in sputum production. Tachypneic and hypoxic on arrival at 81% on room air requiring supplemental O2. Patient without fevers/chills/leukocytosis or infiltrate. CTA limited secondary to motion artifact, however, no PEs identified. D-dimer elevated but is within range for age adjustment. PRICE/SOB most likely secondary to COPD exacerbation. Patient recently quit smoking 2 weeks ago which may also be contributing to increase sputum production and cough -Admit to medical floor with continuous pulse oximetry -Supplemental O2 as needed to maintain saturations 88 - 92% -DuoNeb q 4 hours -Albuterol q 2 hours PRN -Solumedrol 40mg IV TID -Azithromycin 500mg IV then 250mg IV daily -Mucinex BID -Check flu -Check bilateral LE dopplers - concerning history with leg cramping and swelling prior to the SOB Present on Admission?: Yes (2) COPD (chronic obstructive pulmonary disease): Plan as above. Present on Admission?: Yes (3) Coronary artery disease: Patient without CP. RBBB noted on EKG. Troponin negative x 1. Patient with history of transient cardiomyopathy with recovery of EF per echo September 2016. He follows with Dr. Guerrero, last seen on 27 May 2018. Appears to be euvole homero, no acute CHF. -Continue ASA 81mg, Atorvastatin 40mg, Carvedilol 12.5mg po BID, Losartan 100mg -Continue Lasix 20mg po daily (4) Diabetes: Type II DM with neuropathy. Well controlled on home regimen -Continue NPH 50u qHS -Continue Victoza daily -Hold metformin for now -Continue Gabapentin for neuropathy -CC diet as tolerated Present on Admission?: Yes (5) Hypertension: Blood pressure stable at present. Typically runs 130/70's. -Continue Carvedilol, Losartan -Continue to monitor Present on Admission?: Yes (6) Hyperlipidemia: Chronic. Well controlled. Lipid panel checked in May with excellent control. LDL=58, HLD=37 -Continue Atorvastatin (7) BPH (benign prostatic hyperplasia): Chronic. Stable -Conitinue Silodosin F/E/N - Heplock. Monitor electroltyes and replete as needed. CC, heart healthy diet as tolerated Ppx - Lovenox Code - Full Dispo - Med with continuous pulse oximetry History of Present Illness Chief Complaint: PRICE Primary Care Provider: Natalia Dozier MD Mr. Mills is a pleasant 73yo male with history of nonobstructive CAD, DM, HTN, HLP, COPD presenting with SOB. Patient reports that approximately 2.5 weeks ago he began having some muscle cramps in his lower extremities bilaterally, L > R. He had an EMG performed on 26 July which revealed polyneuropathy and right sided radiculopathy (although patient with no right sided complaints). His amitriptyline was discontinued and his gabapentin was increased to 300mg po qHS. He reports that his legs felt swollen after the EMG was performed and he noted a deep sock line on his leg, L >R. He also reports progressive SOB and PRICE. Patient becomes short of breath with ambulating 20 - 30 feet in his home. He has a cough productive for white sputum. He denies CP/palpit ations/dizziness/diaphoresis. Denies edema/weight gain or orthopnea. Denies history of DVT/PE. Patient with longstanding history of tobacco abuse, 2ppd for almost 50 years. He quit 2 weeks ago. He has COPD. No prior hospitalizations in the last year or intubations for COPD. No home O2 use. In the ER patient was tachypneic, RR of 24, saturating 81% on room air. He was placed on 4L NC with improvement in oxygenation to 94%. Patient with no additional complaints at this time ER Course: Albuterol x 2, Solumedrol Allergies Allergy/AdvReac Type Severity Reaction Status Date / Time No Known Allergies Allergy Unverified 08/21/18 02:34 Home Medications Home Medications Medication Instructions Recorded Confirmed Type aspirin 81 mg PO DAILY 08/21/18 08/21/18 History atorvastatin 40 mg PO DAILY 08/21/18 08/21/18 History carvedilol 12.5 mg PO BID 08/21/18 08/21/18 History cholecalciferol (vitamin D3) 1,000 unit PO DAILY 08/21/18 08/21/18 History [Vitamin D3] cyanocobalamin (vitamin B-12) 500 mcg PO DAILY 08/21/18 08/21/18 History [Vitamin B-12] furosemide 20 mg PO DAILY PRN 08/21/18 08/21/18 History gabapentin 300 mg PO HS 08/21/18 08/21/18 History guaifenesin [Mucinex] 600 mg PO DAILY 08/21/18 08/21/18 History insulin NPH isoph U-100 human 50 unit SUBCUT HS 08/21/18 08/21/18 History [Humulin N NPH U-100 Insulin] insulin aspart U-100 [Novolog 0 unit SUBCUT UD 08/21/18 08/21/18 History U-100 Insulin aspart] liraglutide [Victoza 3-Kalpesh] 0.6 mcg SUBCUT DAILY 08/21/18 08/21/18 History losartan 100 mg PO DAILY 08/21/18 08/21/18 History metformin 1,000 mg PO BID 08/21/18 08/21/18 History silodosin [Rapaflo] 8 mg PO QPM 08/21/18 08/21/18 History tiotropium bromide [Spiriva 2 puff INHALATION DAILY 08/21/18 08/21/18 History Respimat] Past Med/Surg History Medical History BPH (benign prostatic hyperplasia) CAD (coronary artery disease) mild, diffuse disease, 2007 COPD (chronic obstructive pulmonary disease) Cardiomyopathy transient idiopathic. EF 35-40% in 2007, improved to 50-55% in September 2016 Diabetes type 2, controlled Hyperlipidemia Hypertension Peripheral neuropathy Surgical History History of back surgery History of hernia repair History of knee surgery History of prostate surgery History of shoulder surgery Family History Other Diabetes Social History Feels Safe at Home: Yes Smoking Status: Former smoker Hx Alcohol Use: No Hx Substance Use: No Review of Systems All systems reviewed & are unremarkable except as noted in HPI & below Physical Exam Vital Signs (Past 24 Hours): Last Vital Signs Temp 37.1 C 08/20/18 23:08 Pulse 83 08/21/18 01:53 Resp 24 08/21/18 01:53 BP 141/58 H 08/21/18 01:53 Pulse Ox 94 08/21/18 01:53 Physical Exam: General: patient sitting at edge of the bed, still mildly tachypneic but NAD, non-toxic in appearance, AA&O x 4 Skin: warm, dry, intact, no rashes or lesions HEENT: NC/AT, PERRL, EOMI, anicteric sclera, conjunctiva without injection, external ear normal to inspection and nontender, hearing aides in place, nares patent, moist mucus membranes, dentition intact, no oropharyngeal lesions, neck supple, trachea midline, no LAD, no thyromegaly, no JVD Heart: +S1/S2, regular, no m/r/g Lungs: diminished breath sounds bilaterally, no rales/rhonchi/wheezes Abd: +BS, soft, NT/ND, no masses/organomegaly/ascites Ext: warm, 2+ pulses in UE/LE bilaterally, no clubbing/cyanosis, 1+ pitting edema of bilateral LEs, L > R Neuro: nonfocal, patient AA&O x 4, speech intact, no facial droop, moving all extremities on command with equal strength 5/5 Results & Data Laboratory Results Lab Results 08/20/18 08/20/18 08/20/18 Range/Units 23:27 23:27 23:27 WBC 7.13 (4.8-10.8) K/uL RBC 4.44 L (4.7-6.1) M/uL Hgb 13.9 L (14.0-18.0) g/dL Hct 42.4 (42-52) % MCV 95.5 (80-100) fL MCH 31.3 (25-34) pg MCHC 32.8 (32-36) g/dL RDW Std Deviation 45.9 (36.4-46.3) fL RDW Coeff of Pritesh 13.2 (11.5-14.5) % Plt Count 186 (130-400) K/uL MPV 9.8 (7.4-10.4) fL Immature Gran % (Auto) 0.1 % Neut % (Auto) 65.8 % Lymph % (Auto) 17.4 % Smith % (Auto) 15.7 % Eos % (Auto) 0.6 % Baso % (Auto) 0.4 % Immature Gran # (Auto) 0.01 (0.00-0.02) K/uL Neut # (Auto) 4.69 (1.4-6.5) K/uL Lymph # (Auto) 1.24 (1.2-3.4) K/uL Smith # (Auto) 1.12 H (0.11-0.59) K/uL Eos # (Auto) 0.04 (0-0.5) K/uL Baso # (Auto) 0.03 (0-0.2) K/uL PT Cancelled INR Cancelled APTT Cancelled PTT Ratio Cancelled D-Dimer (0-500) ug/L FEU Sodium 137 (136-145) mmol/L Potassium (3.5-5.1) mmol/L Chloride 102 (98-107) mmol/L Carbon Dioxide 30 (21-32) mmol/L Anion Gap 5.0 (3-11) BUN 26 H (7-18) mg/dl Creatinine 1.35 (0.6-1.4) mg/dl Est Cr Clr Drug Dosing 63.0 ml/min Est GFR ( Amer) 60.4 Est GFR (Non-Af Amer) 52.1 BUN/Creatinine Ratio 19.1 (10-20) Glucose 54 L (70-99) mg/dl POC Glucose (70-99) Calcium 8.6 (8.5-10.1) mg/dl Magnesium (1.8-2.4) mg/dl Total Bilirubin 0.4 (0.2-1) mg/dl AST (15-37) U/L ALT 21 (12-78) U/L Alkaline Phosphatase 67 (45-117) U/L Troponin I < 0.015 (0-0.045) ng/ml NT-Pro-B Natriuret Pep 184 (0-900) pg/ml Total Protein 8.4 H (6.4-8.2) gm/dl Albumin 3.4 (3.4-5.0) gm/dl Globulin 5.0 H (2.5-4.0) gm/dl Albumin/Globulin Ratio 0.7 L (0.9-2) Urine Color Urine Appearance (Clear) Urine pH (4.5-7.5) Ur Specific [place] (1.000-1.030) Urine Protein (Negative) Urine Glucose (UA) (Negative) Urine Ketones (Negative) Urine Blood (Negative) Urine Nitrite (Negative) Urine Bilirubin (Negative) Urine Urobilinogen (Negative) Ur Leukocyte Esterase (Negative) Urine WBC (Auto) (0-5) /hpf Urine RBC (Auto) (0-4) /hpf U Hyaline Cast (Auto) (0-5) /lpf U Epithel Cells (Auto) (0-5) /lpf Urine Bacteria (Auto) (Negative) 08/21/18 08/21/18 08/21/18 Range/Units 00:04 00:05 01:51 WBC (4.8-10.8) K/uL RBC (4.7-6.1) M/uL Hgb (14.0-18.0) g/dL Hct (42-52) % MCV (80-100) fL MCH (25-34) pg MCHC (32-36) g/dL RDW Std Deviation (36.4-46.3) fL RDW Coeff of Pritesh (11.5-14.5) % Plt Count (130-400) K/uL MPV (7.4-10.4) fL Immature Gran % (Auto) % Neut % (Auto) % Lymph % (Auto) % Smith % (Auto) % Eos % (Auto) % Baso % (Auto) % Immature Gran # (Auto) (0.00-0.02) K/uL Neut # (Auto) (1.4-6.5) K/uL Lymph # (Auto) (1.2-3.4) K/uL Smith # (Auto) (0.11-0.59) K/uL Eos # (Auto) (0-0.5) K/uL Baso # (Auto) (0-0.2) K/uL PT 11.1 INR 1.1 APTT 26.1 PTT Ratio 1.0 D-Dimer 650 H* (0-500) ug/L FEU Sodium (136-145) mmol/L Potassium 4.4 (3.5-5.1) mmol/L Chloride (98-107) mmol/L Carbon Dioxide (21-32) mmol/L Anion Gap (3-11) BUN (7-18) mg/dl Creatinine (0.6-1.4) mg/dl Est Cr Clr Drug Dosing ml/min Est GFR ( Amer) Est GFR (Non-Af Amer) BUN/Creatinine Ratio (10-20) Glucose (70-99) mg/dl POC Glucose 74 (70-99) Calcium (8.5-10.1) mg/dl Magnesium 1.9 (1.8-2.4) mg/dl Total Bilirubin (0.2-1) mg/dl AST 27 (15-37) U/L ALT (12-78) U/L Alkaline Phosphatase (45-117) U/L Troponin I (0-0.045) ng/ml NT-Pro-B Natriuret Pep (0-900) pg/ml Total Protein (6.4-8.2) gm/dl Albumin (3.4-5.0) gm/dl Globulin (2.5-4.0) gm/dl Albumin/Globulin Ratio (0.9-2) Urine Color Urine Appearance (Clear) Urine pH (4.5-7.5) Ur Specific [place] (1.000-1.030) Urine Protein (Negative) Urine Glucose (UA) (Negative) Urine Ketones (Negative) Urine Blood (Negative) Urine Nitrite (Negative) Urine Bilirubin (Negative) Urine Urobilinogen (Negative) Ur Leukocyte Esterase (Negative) Urine WBC (Auto) (0-5) /hpf Urine RBC (Auto) (0-4) /hpf U Hyaline Cast (Auto) (0-5) /lpf U Epithel Cells (Auto) (0-5) /lpf Urine Bacteria (Auto) (Negative) 08/21/18 Range/Units 02:46 WBC (4.8-10.8) K/uL RBC (4.7-6.1) M/uL Hgb (14.0-18.0) g/dL Hct (42-52) % MCV (80-100) fL MCH (25-34) pg MCHC (32-36) g/dL RDW Std Deviation (36.4-46.3) fL RDW Coeff of Pritesh (11.5-14.5) % Plt Count (130-400) K/uL MPV (7.4-10.4) fL Immature Gran % (Auto) % Neut % (Auto) % Lymph % (Auto) % Smith % (Auto) % Eos % (Auto) % Baso % (Auto) % Immature Gran # (Auto) (0.00-0.02) K/uL Neut # (Auto) (1.4-6.5) K/uL Lymph # (Auto) (1.2-3.4) K/uL Smith # (Auto) (0.11-0.59) K/uL Eos # (Auto) (0-0.5) K/uL Baso # (Auto) (0-0.2) K/uL PT INR APTT PTT Ratio D-Dimer (0-500) ug/L FEU Sodium (136-145) mmol/L Potassium (3.5-5.1) mmol/L Chloride (98-107) mmol/L Carbon Dioxide (21-32) mmol/L Anion Gap (3-11) BUN (7-18) mg/dl Creatinine (0.6-1.4) mg/dl Est Cr Clr Drug Dosing ml/min Est GFR ( Amer) Est GFR (Non-Af Amer) BUN/Creatinine Ratio (10-20) Glucose (70-99) mg/dl POC Glucose (70-99) Calcium (8.5-10.1) mg/dl Magnesium (1.8-2.4) mg/dl Total Bilirubin (0.2-1) mg/dl AST (15-37) U/L ALT (12-78) U/L Alkaline Phosphatase (45-117) U/L Troponin I (0-0.045) ng/ml NT-Pro-B Natriuret Pep (0-900) pg/ml Total Protein (6.4-8.2) gm/dl Albumin (3.4-5.0) gm/dl Globulin (2.5-4.0) gm/dl Albumin/Globulin Ratio (0.9-2) Urine Color Yellow Urine Appearance Clear (Clear) Urine pH 5.0 (4.5-7.5) Ur Specific [place] > 1.045 H (1.000-1.030) Urine Protein Negative (Negative) Urine Glucose (UA) Negative (Negative) Urine Ketones Negative (Negative) Urine Blood 3+ H (Negative) Urine Nitrite Negative (Negative) Urine Bilirubin Negative (Negative) Urine Urobilinogen Negative (Negative) Ur Leukocyte Esterase Negative (Negative) Urine WBC (Auto) 0 (0-5) /hpf Urine RBC (Auto) 10-30 H (0-4) /hpf U Hyaline Cast (Auto) 0 (0-5) /lpf U Epithel Cells (Auto) 0-5 (0-5) /lpf Urine Bacteria (Auto) Negative (Negative) Diagnostic Findings CXR - by my interpretation, no evidence of PTX or infiltrate, prominent interstitial markings CTA- STAT-Rad report - prominent motion artifact limiting evaluation. Cannot exclude PE in regious of artifact. No large central PE. Suggestion of brochial wall thickening. No consolidation. No effusions. No edema. Borderline mediastinal nodes and right hilar adenopathy. Small lung nodules. ECG Additional Comments: NSR at 83, RBBB, OA=576, HHD=103, KFj=776, no evidence of acute ischemia Code Status & VTE Plan Code Status full Critical Care Time Critical Care Time: No (1) COPD (chronic obstructive pulmonary disease) COPD type: unspecified COPD Qualified Code(s): J44.9 - Chronic obstructive pulmonary disease, unspecified (2) Coronary artery disease Coronary Disease-Associated Artery/Lesion type: [place] artery [place] vs. 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
[2018-08-21] MEDS ORDERED: GLUCAGON FOR INJ 1 MG VIAL SQ PRN (04:46)
[2018-08-21] MEDS ORDERED: DOCUSATE SODIUM 100 MG CAP PO PRN (04:46)
[2018-08-21] MEDS ORDERED: ALBUTEROL 0.5% NEB SOLN 2.5 MG/0.5 ML VIAL NEB PRN (04:46)
[2018-08-21] MEDS ORDERED: GLUCOSE 40% GEL 15 GM TUBE PO PRN (04:46)
[2018-08-21] MEDS ORDERED: DEXTROSE 50% 50 ML SYRINGE IV PRN (04:46)
[2018-08-21] MEDS ORDERED: ACETAMINOPHEN 325 MG TAB PO PRN (04:46)
[2018-08-21] MEDS ORDERED: GLUCOSE 10 TABS/TUBE PO PRN (04:46)
[2018-08-21] MEDS ORDERED: POLYETHYLENE (MIRALAX) 17 GM PACK PO PRN (04:46)
[2018-08-21] MEDS ORDERED: FUROSEMIDE 20 MG TAB PO PRN (04:46)
[2018-08-21] MEDS ORDERED: AZITHROMYCIN 500 MG in DEXTROSE 5% 250 ML IV ONE (05:30)
--- NOTE | 2018-08-21 06:26 | CT Scan Report ---
CT angio chest PE protocol CT DOSE: 834.16 mGy.cm HISTORY: Chest pain PE TECHNIQUE: Multiaxial CT images of the chest were performed following the intravenous administration of contrast to evaluate the pulmonary arteries. Maximal intensity projection images were also obtaine d. A dose lowering technique was utilized adhering to the principles of ALARA. COMPARISON STUDY: None. FINDINGS: The thoracic aorta is normal in course and caliber. Study is compromised in part due to res piratory and somatic motion. Evaluation of the second third vessels, arise. No evidence for major central pulmonary embolus. Thoracic aorta shows mild atherosclerotic change. It is negative for aneurysm or dissection. Lung parenchyma shows mild emphysematous change. There are n o focal infiltrative changes. IMPRESSION: 1. No evidence for a major central or main pulmonary most. 2. Nondiagnostic evaluation of the peripheral arterial vasculature. The above report was generated using voice recognition software. It may contain grammatical, syntax or spelling errors. Electronically signed by: Kishan Little M.D. 08/21/2018 6:25 AM
[2018-08-21] MEDS ORDERED: INFLUENZA VIRUS QUAD VACCINE 0.5 ML SYR IM ONE (06:30)
[2018-08-21] MEDS ORDERED: PNEUMOCOCCAL ADMINISTRATION CHARGE ONE (06:30)
[2018-08-21] MEDS ORDERED: INFLUENZA ADMINISTRATION CHARGE ONE (06:30)
[2018-08-21] MEDS ORDERED: PNEUMOCOCCAL POLYSACCHARIDES 25 MCG/0.5 ML VIAL/SYR IM ONE (06:30)
--- NOTE | 2018-08-21 06:33 | XRay Report ---
XR chest 1V portable HISTORY: 73 years-old Male Dyspnea acute shortness of breath COMPARISON: CTA of the chest of same day TECHNIQUE: Portable AP view of the chest FINDINGS: Cardiomediastinal and hilar silhouettes are within normal limits. There is no pneumothorax, pleural e ffusion or overt pulmonary edema. Suggestion of mild emphysema. Ill-defined opacities of the right up per lobe and right perihilar distribution are better seen on comparison CTA of the chest of same day. Degenerative changes of the shoulders and spine. IMPRESSION: Subtle ill-defined opacities of the right upper lobe and right perihilar distribution may reflect atelectasis or developing pneumonia. The above report was generated using voice recognition software. It may contain grammatical, syntax o r spelling errors. Electronically signed by: Ken Simon M.D. 08/21/2018 6:31 AM
[2018-08-21] MEDS: ALBUT/IPRATROP 3MG/0.5MG NEB 3 ML VIAL NEB SCH ×5 (07:17→23:36)
--- NOTE | 2018-08-21 08:05 | Ultrasound Report ---
ULTRASOUND BILATERAL LOWER EXTREMITY VENOUS CLINICAL HISTORY: Lower extremity edema. COMPARISON STUDY: No priors. TECHNIQUE: Real-time, grayscale, and color Doppler sonography of the deep veins of the right and left lower extremity was performed from the inguinal crease to the calf. Compression and augmentation wer e utilized. FINDINGS: There is no sonographic evidence of deep venous thrombosis identified in the right or left lower extremity. The common femoral, superficial femoral, and popliteal veins are patent and normally compressible bilaterally. The greater saphenous vein and the profunda femoris vein at the junction w ith the common femoral vein are clear in both legs. The visualized calf veins are patent bilaterally. IMPRESSION: There is no sonographic evidence of deep venous thrombosis identified in the right or lef t lower extremity. Electronically signed by: Preston Parkinson M.D. 08/21/2018 8:04 AM
[2018-08-21] MEDS: RAPAFLO~ORDER AWAITING ACTION SCH ×2 (08:44→17:42)
[2018-08-21] MEDS: INSULIN ASPART 100 UNITS/ML 3 ML PEN SC SCH ×4 (08:44→20:27)
[2018-08-21] MEDS: ATORVASTATIN 40 MG TAB PO SCH (08:45)
[2018-08-21] MEDS: VICTOZA~ORDER AWAITING ACTION SCH ×2 (08:45→17:42)
[2018-08-21] MEDS: CARVEDILOL 12.5 MG TAB PO SCH ×2 (08:45→21:51)
[2018-08-21] MEDS: ASPIRIN 81 MG ECTAB PO SCH (08:45)
[2018-08-21] MEDS: guaiFENesin 600 MG TABCR PO SCH ×2 (08:45→20:26)
[2018-08-21] MEDS: ENOXAPARIN INJ 40 MG/0.4 ML SYR SQ SCH (08:47)
[2018-08-21] MEDS ORDERED: LOSARTAN POTASSIUM 50 MG TAB PO SCH (09:00)
[2018-08-21] MEDS: methylPREDNISolone 40 MG in SYRINGE 0 ML IV SCH ×2 (10:42→17:45)
[2018-08-21] MEDS: INSULIN HUMAN NPH SC SCH (20:26)
[2018-08-21] MEDS: GABAPENTIN 300 MG CAP PO SCH ×2 (20:26→20:33)
--- NOTE | 2018-08-21 21:22 | Hospitalist Progress Note ---
Date of Service August 21, 2018 Assessment & Plan (1) COPD with exacerbation: The patient has a severe COPD exacerbation No evidence of complicating pneumonia on imaging He likely has severe COPD at baseline He is clearly not ready to leave the hospital given his high O2 requirement and dyspnea with minimal activity I counseled him he has at least 2-3 days of hospitalization ahead He voiced understanding We will cont steroids, abx, nebs, O2, supportive care Pulmonary toilet sister updated at bedside (2) Acute respiratory failure with hypoxia: 2nd to COPD exacerbation Subjective called to bedside by nursing staff that pt was adamant about leaving hospital today. he kept taking his NC O2 off and with such would desaturate into the 70s. upon entering his room he was agitated but we were able to discuss the need for him to remain hospitalized. sister was at bedside. he states he quit smoking several years ago. had smoked since teenage years. sister states he has had severe PRICE for "a long time" with minimal exertion. patient states "I feel much better" in comparison to arrival to our ER. Physical Exam Vital Signs (Past 24 Hours): Last Vital Signs Temp 36.8 C 08/21/18 15:27 Pulse 82 08/21/18 19:48 Resp 16 08/21/18 19:48 BP 112/58 L 08/21/18 15:27 Pulse Ox 91 08/21/18 19:48 Constitutional: well developed, well nourished and + acute distress (with moving in the bed he has dyspnea and tachypnea) ENMT: external ear and nose normal, oropharynx normal Respiratory: + labored breathing (with movement but not at rest) Auscultation: + diminished lung sounds and + wheezes (occasional); no rales Cardiovascular: Rate/Rhythm: regular rate and regular rhythm Heart Sounds: normal S1 and normal S2; no murmur Vessels: posterior tibial pulses present and dorsalis pedis pulses present; no JVD Extremities: no edema Gastrointestinal (Abdomen): normal bowel sounds, soft, nontender, no hepatosplenomegaly Psychiatric: Orientation: alert and oriented x 3 a bit agitated Results & Data Laboratory Results Laboratory Results - last 24 hr 08/20/18 08/20/18 08/20/18 23:27 23:27 23:27 WBC 7.13 RBC 4.44 L Hgb 13.9 L Hct 42.4 MCV 95.5 MCH 31.3 MCHC 32.8 RDW Std Deviation 45.9 RDW Coeff of Pritesh 13.2 Plt Count 186 MPV 9.8 Immature Gran % (Auto) 0.1 Neut % (Auto) 65.8 Lymph % (Auto) 17.4 [place] % (Auto) 15.7 Eos % (Auto) 0.6 Baso % (Auto) 0.4 Immature Gran # (Auto) 0.01 Neut # (Auto) 4.69 Lymph # (Auto) 1.24 [place] # (Auto) 1.12 H Eos # (Auto) 0.04 Baso # (Auto) 0.03 PT Cancelled INR Cancelled APTT Cancelled PTT Ratio Cancelled D-Dimer Sodium 137 Potassium Chloride 102 Carbon Dioxide 30 Anion Gap 5.0 BUN 26 H Creatinine 1.35 Est Cr Clr Drug Dosing 63.0 Est GFR ( Amer) 60.4 Est GFR (Non-Af Amer) 52.1 BUN/Creatinine Ratio 19.1 Glucose 54 L POC Glucose Calcium 8.6 Phosphorus Magnesium Total Bilirubin 0.4 AST ALT 21 Alkaline Phosphatase 67 Troponin I < 0.015 NT-Pro-B Natriuret Pep 184 Total Protein 8.4 H Albumin 3.4 Globulin 5.0 H Albumin/Globulin Ratio 0.7 L Urine Color Urine Appearance Urine pH Ur Specific [place] Urine Protein Urine Glucose (UA) Urine Ketones Urine Blood Urine Nitrite Urine Bilirubin Urine Urobilinogen Ur Leukocyte Esterase Urine WBC (Auto) Urine RBC (Auto) U Hyaline Cast (Auto) U Epithel Cells (Auto) Urine Bacteria (Auto) Influenza Type A Ag Influenza Type B Ag 08/21/18 08/21/18 08/21/18 00:04 00:05 01:51 WBC RBC Hgb Hct MCV MCH MCHC RDW Std Deviation RDW Coeff of Pritesh Plt Count MPV Immature Gran % (Auto) Neut % (Auto) Lymph % (Auto) [place] % (Auto) Eos % (Auto) Baso % (Auto) Immature Gran # (Auto) Neut # (Auto) Lymph # (Auto) [place] # (Auto) Eos # (Auto) Baso # (Auto) PT 11.1 INR 1.1 APTT 26.1 PTT Ratio 1.0 D-Dimer 650 H* Sodium Potassium 4.4 Chloride Carbon Dioxide Anion Gap BUN Creatinine Est Cr Clr Drug Dosing Est GFR ( Amer) Est GFR (Non-Af Amer) BUN/Creatinine Ratio Glucose POC Glucose 74 Calcium Phosphorus Magnesium 1.9 Total Bilirubin AST 27 ALT Alkaline Phosphatase Troponin I NT-Pro-B Natriuret Pep Total Protein Albumin Globulin Albumin/Globulin Ratio Urine Color Urine Appearance Urine pH Ur Specific [place] Urine Protein Urine Glucose (UA) Urine Ketones Urine Blood Urine Nitrite Urine Bilirubin Urine Urobilinogen Ur Leukocyte Esterase Urine WBC (Auto) Urine RBC (Auto) U Hyaline Cast (Auto) U Epithel Cells (Auto) Urine Bacteria (Auto) Influenza Type A Ag Influenza Type B Ag 08/21/18 08/21/18 08/21/18 02:46 03:42 04:30 WBC RBC Hgb Hct MCV MCH MCHC RDW Std Deviation RDW Coeff of Pritesh Plt Count MPV Immature Gran % (Auto) Neut % (Auto) Lymph % (Auto) [place] % (Auto) Eos % (Auto) Baso % (Auto) Immature Gran # (Auto) Neut # (Auto) Lymph # (Auto) [place] # (Auto) Eos # (Auto) Baso # (Auto) PT INR APTT PTT Ratio D-Dimer Sodium Potassium Chloride Carbon Dioxide Anion Gap BUN Creatinine Est Cr Clr Drug Dosing Est GFR ( Amer) Est GFR (Non-Af Amer) BUN/Creatinine Ratio Glucose POC Glucose 133 H Calcium Phosphorus Magnesium Total Bilirubin AST ALT Alkaline Phosphatase Troponin I NT-Pro-B Natriuret Pep Total Protein Albumin Globulin Albumin/Globulin Ratio Urine Color Yellow Urine Appearance Clear Urine pH 5.0 Ur Specific [place] > 1.045 H Urine Protein Negative Urine Glucose (UA) Negative Urine Ketones Negative Urine Blood 3+ H Urine Nitrite Negative Urine Bilirubin Negative Urine Urobilinogen Negative Ur Leukocyte Esterase Negative Urine WBC (Auto) 0 Urine RBC (Auto) 10-30 H U Hyaline Cast (Auto) 0 U Epithel Cells (Auto) 0-5 Urine Bacteria (Auto) Negative Influenza Type A Ag Neg for Influ A Influenza Type B Ag Neg for Influ B 08/21/18 08/21/18 08/21/18 04:35 05:08 12:27 WBC RBC Hgb Hct MCV MCH MCHC RDW Std Deviation RDW Coeff of Pritesh Plt Count MPV Immature Gran % (Auto) Neut % (Auto) Lymph % (Auto) [place] % (Auto) Eos % (Auto) Baso % (Auto) Immature Gran # (Auto) Neut # (Auto) Lymph # (Auto) [place] # (Auto) Eos # (Auto) Baso # (Auto) PT INR APTT PTT Ratio D-Dimer Sodium Potassium Chloride Carbon Dioxide Anion Gap BUN Creatinine Est Cr Clr Drug Dosing Est GFR ( Amer) Est GFR (Non-Af Amer) BUN/Creatinine Ratio Glucose POC Glucose 119 H 246 H Calcium Phosphorus 3.3 Magnesium Total Bilirubin AST ALT Alkaline Phosphatase Troponin I NT-Pro-B Natriuret Pep Total Protein Albumin Globulin Albumin/Globulin Ratio Urine Color Urine Appearance Urine pH Ur Specific [place] Urine Protein Urine Glucose (UA) Urine Ketones Urine Blood Urine Nitrite Urine Bilirubin Urine Urobilinogen Ur Leukocyte Esterase Urine WBC (Auto) Urine RBC (Auto) U Hyaline Cast (Auto) U Epithel Cells (Auto) Urine Bacteria (Auto) Influenza Type A Ag Influenza Type B Ag 08/21/18 08/21/18 16:17 20:06 WBC RBC Hgb Hct MCV MCH MCHC RDW Std Deviation RDW Coeff of Pritesh Plt Count MPV Immature Gran % (Auto) Neut % (Auto) Lymph % (Auto) [place] % (Auto) Eos % (Auto) Baso % (Auto) Immature Gran # (Auto) Neut # (Auto) Lymph # (Auto) [place] # (Auto) Eos # (Auto) Baso # (Auto) PT INR APTT PTT Ratio D-Dimer Sodium Potassium Chloride Carbon Dioxide Anion Gap BUN Creatinine Est Cr Clr Drug Dosing Est GFR ( Amer) Est GFR (Non-Af Amer) BUN/Creatinine Ratio Glucose POC Glucose 243 H 336 H Calcium Phosphorus Magnesium Total Bilirubin AST ALT Alkaline Phosphatase Troponin I NT-Pro-B Natriuret Pep Total Protein Albumin Globulin Albumin/Globulin Ratio Urine Color Urine Appearance Urine pH Ur Specific [place] Urine Protein Urine Glucose (UA) Urine Ketones Urine Blood Urine Nitrite Urine Bilirubin Urine Urobilinogen Ur Leukocyte Esterase Urine WBC (Auto) Urine RBC (Auto) U Hyaline Cast (Auto) U Epithel Cells (Auto) Urine Bacteria (Auto) Influenza Type A Ag Influenza Type B Ag
[2018-08-22] MEDS: RAPAFLO~ORDER AWAITING ACTION SCH ×3 (00:02→16:12)
[2018-08-22] MEDS: VICTOZA~ORDER AWAITING ACTION SCH ×3 (00:03→16:12)
[2018-08-22] MEDS: ALBUT/IPRATROP 3MG/0.5MG NEB 3 ML VIAL NEB SCH ×6 (03:22→23:08)
[2018-08-22] MEDS: methylPREDNISolone 40 MG in SYRINGE 0 ML IV SCH ×2 (03:37→16:11)
[2018-08-22 07:18] LABS: Hematocrit (blood only) 38.6 % (42-52); Hemoglobin 12.6 g/dL (14.0-18.0); Immature Granulocytes # (auto) 0.03 K/uL (0.00-0.02); Immature Granulocytes % (auto) 0.3 %; Lymphocytes # (auto) 0.82 K/uL (1.2-3.4); Lymphocytes % (auto) 7.7 %; Mean Corpuscular Hgb Conc 32.6 g/dL (32-36); Mean Corpuscular Volume 95.1 fL (80-100); Mean Platelet Volume 9.3 fL (7.4-10.4); Monocytes # (auto) 0.82 K/uL (0.11-0.59); Monocytes % (auto) 7.7 %; Neutrophils # (auto) 9.01 K/uL (1.4-6.5); Neutrophils % (auto) 84.3 %; Platelet Count 189 K/uL (130-400); RDW Coefficient of Variation 12.9 % (11.5-14.5); RDW Standard Deviation 45.2 fL (36.4-46.3); Red Blood Count 4.06 M/uL (4.7-6.1); White Blood Count 10.68 K/uL (4.8-10.8)
[2018-08-22 07:50] LABS: BUN Creatinine Ratio 24.9 (10-20); Calcium 8.7 mg/dl (8.5-10.1); Est GFR (African American) 59.3; Est GFR (Non-African American) 51.2; Potassium 5.1 mmol/L (3.5-5.1)
[2018-08-22] MEDS: CARVEDILOL 12.5 MG TAB PO SCH ×2 (08:11→21:37)
[2018-08-22] MEDS: ATORVASTATIN 40 MG TAB PO SCH (08:12)
[2018-08-22] MEDS: ASPIRIN 81 MG ECTAB PO SCH (08:12)
[2018-08-22] MEDS: ENOXAPARIN INJ 40 MG/0.4 ML SYR SQ SCH (08:13)
[2018-08-22] MEDS: guaiFENesin 600 MG TABCR PO SCH ×2 (08:13→21:38)
[2018-08-22] MEDS: INSULIN ASPART 100 UNITS/ML 3 ML PEN SC SCH ×4 (08:17→21:44)
[2018-08-22] MEDS ORDERED: AZITHROMYCIN 250 MG in DEXTROSE 5% 250 ML IV SCH (09:00)
[2018-08-22] MEDS: INSULIN GLARGINE SOLOSTAR 100 UNITS/ML 3 ML PEN SC SCH (10:12)
[2018-08-22] MEDS: CARBOHYDRATES FOR HYPOGLYCEMIA PO PRN (16:18)
--- NOTE | 2018-08-22 20:06 | Hospitalist Progress Note ---
Date of Service August 22, 2018 Assessment & Plan (1) COPD with exacerbation: Slowly improving. However still requiring 6 liters NC O2 to maintain o2 sats in low 90s. No wean on steroids today. Old records from [facility] --- pulmonary saw 4-5 years ago -- PFTs at that time showed moderate obstruction. Add advair 250/50 1 puff BID. Cont spiriva. Cont mucinex. Cont nebs. Consider echo, r/o pulm HTN. Present on Admission?: Yes (2) Acute respiratory failure with hypoxia: 2nd to COPD exacerbation slowly improving but still requiring considerable O2 amount needs better pulmonary toilet -- flutter valve/incentive catia ordered. Present on Admission?: Yes (3) BPH (benign prostatic hyperplasia): no issues voiding ok (4) Hyperlipidemia: statin (5) Hypertension: control acceptable with home regimen of meds but hold ARB since potassium is top-normal (6) Coronary artery disease: no ischemic symptoms cont asa,statin,betablocker (7) Diabetes: (8) Restless leg syndrome: check ferritin in am cont gabapentin HS (9) DVT prophylaxis: lovenox daily PT, OT evals move to med/surg Subjective patient state "I feel great and want to go home" he walked the hallway last pm twice and "felt good" denies significant PRICE or cough but does admit "there's stuff down there but it won't come out" no new complaints he was irritated that I saw him at 3pm in the afternoon and not this AM Constitutional: no fever Respiratory: + cough; no dyspnea, no hemoptysis and no wheezing Cardiovascular: no chest pain Gastrointestinal: no abdominal pain Physical Exam Vital Signs (Past 24 Hours): Last Vital Signs Temp 36.8 C 08/22/18 15:48 Pulse 80 08/22/18 19:03 Resp 20 08/22/18 19:03 BP 112/61 08/22/18 15:48 Pulse Ox 90 08/22/18 19:03 Constitutional: well developed and well nourished; no acute distress and not ill appearing looks better today ENMT: external ear and nose normal, oropharynx normal Respiratory: Auscultation: + diminished lung sounds (but airation improved today) and + wheezes (occasional); no rales Cardiovascular: Rate/Rhythm: regular rate and regular rhythm Heart Sounds: normal S1 and normal S2; no murmur Vessels: posterior tibial pulses present and dorsalis pedis pulses present; no JVD Extremities: no edema Gastrointestinal (Abdomen): normal bowel sounds, soft, nontender, no hepatosplenomegaly Psychiatric: Orientation: alert and oriented x 3 Results & Data Laboratory Results Laboratory Results - last 24 hr 08/21/18 08/22/18 08/22/18 20:06 06:58 06:58 WBC 10.68 RBC 4.06 L Hgb 12.6 L Hct 38.6 L MCV 95.1 MCH 31.0 MCHC 32.6 RDW Std Deviation 45.2 RDW Coeff of Pritesh 12.9 Plt Count 189 MPV 9.3 Immature Gran % (Auto) 0.3 Neut % (Auto) 84.3 Lymph % (Auto) 7.7 [place] % (Auto) 7.7 Eos % (Auto) 0.0 Baso % (Auto) 0.0 Immature Gran # (Auto) 0.03 H Neut # (Auto) 9.01 H Lymph # (Auto) 0.82 L [place] # (Auto) 0.82 H Eos # (Auto) 0.00 Baso # (Auto) 0.00 Sodium 132 L Potassium 5.1 D Chloride 101 Carbon Dioxide 27 Anion Gap 4.0 BUN 34 H Creatinine 1.37 Est Cr Clr Drug Dosing 61.0 Est GFR ( Amer) 59.3 Est GFR (Non-Af Amer) 51.2 BUN/Creatinine Ratio 24.9 H Glucose 231 H POC Glucose 336 H Calcium 8.7 Hepatitis C Ab Screen 08/22/18 08/22/18 08/22/18 06:58 07:47 11:26 WBC RBC Hgb Hct MCV MCH MCHC RDW Std Deviation RDW Coeff of Pritesh Plt Count MPV Immature Gran % (Auto) Neut % (Auto) Lymph % (Auto) [place] % (Auto) Eos % (Auto) Baso % (Auto) Immature Gran # (Auto) Neut # (Auto) Lymph # (Auto) [place] # (Auto) Eos # (Auto) Baso # (Auto) Sodium Potassium Chloride Carbon Dioxide Anion Gap BUN Creatinine Est Cr Clr Drug Dosing Est GFR ( Amer) Est GFR (Non-Af Amer) BUN/Creatinine Ratio Glucose POC Glucose 223 H 328 H Calcium Hepatitis C Ab Screen Neg 0408/22/18 08/22/18 11:27 16:13 16:18 WBC RBC Hgb Hct MCV MCH MCHC RDW Std Deviation RDW Coeff of Pritesh Plt Count MPV Immature Gran % (Auto) Neut % (Auto) Lymph % (Auto) [place] % (Auto) Eos % (Auto) Baso % (Auto) Immature Gran # (Auto) Neut # (Auto) Lymph # (Auto) [place] # (Auto) Eos # (Auto) Baso # (Auto) Sodium Potassium Chloride Carbon Dioxide Anion Gap BUN Creatinine Est Cr Clr Drug Dosing Est GFR ( Amer) Est GFR (Non-Af Amer) BUN/Creatinine Ratio Glucose POC Glucose 335 H 47 L* 52 L* Calcium Hepatitis C Ab Screen 08/22/18 08/22/18 08/22/18 16:35 18:17 19:54 WBC RBC Hgb Hct MCV MCH MCHC RDW Std Deviation RDW Coeff of Pritesh Plt Count MPV Immature Gran % (Auto) Neut % (Auto) Lymph % (Auto) [place] % (Auto) Eos % (Auto) Baso % (Auto) Immature Gran # (Auto) Neut # (Auto) Lymph # (Auto) [place] # (Auto) Eos # (Auto) Baso # (Auto) Sodium Potassium Chloride Carbon Dioxide Anion Gap BUN Creatinine Est Cr Clr Drug Dosing Est GFR ( Amer) Est GFR (Non-Af Amer) BUN/Creatinine Ratio Glucose POC Glucose 71 122 H 165 H Calcium Hepatitis C Ab Screen (1) BPH (benign prostatic hyperplasia) Lower urinary tract symptom presence: symptoms absent Qualified Code(s): N40.0 - Benign prostatic hyperplasia without lower urinary tract symptoms (2) Hyperlipidemia Hyperlipidemia type: unspecified Qualified Code(s): E78.5 - Hyperlipidemia, unspecified (3) Hypertension Hypertension type: essential hypertension Qualified Code(s): I10 - Essential (primary) hypertension (4) Coronary artery disease Coronary Disease-Associated Artery/Lesion type: [place] artery [place] vs. [place] heart: [place] heart Associated angina: without angina Qualified Code(s): I25.10 - Atherosclerotic heart disease of [place] coronary artery without angina pectoris (5) Diabetes Diabetes mellitus type: type 2 Diabetes mellitus fpc insulin use: with [place] agent use Diabetes mellitus complication status: with neurologic complications Diabetes mellitus complication detail: with polyneuropathy Qualified Code(s): E11.42 - Type 2 diabetes mellitus with diabetic polyneuropathy; Z79.4 - snf (current) use of insulin
[2018-08-22] MEDS: TIOTROPIUM BROMIDE 5 PUFF/90 MCG INH INH SCH (21:32)
[2018-08-22] MEDS: FLUTICASONE/SALMETEROL 250/50 (ADVAIR) 14 PUFF/1 INHALER INH SCH (21:34)
[2018-08-22] MEDS: GABAPENTIN 300 MG CAP PO SCH ×2 (21:38→21:41)
[2018-08-22] MEDS: INSULIN HUMAN NPH SC SCH (21:44)
[2018-08-23] MEDS: RAPAFLO~ORDER AWAITING ACTION SCH ×3 (00:10→16:19)
[2018-08-23] MEDS: VICTOZA~ORDER AWAITING ACTION SCH ×3 (00:10→16:19)
[2018-08-23] MEDS: ALBUT/IPRATROP 3MG/0.5MG NEB 3 ML VIAL NEB SCH ×6 (03:08→23:10)
[2018-08-23] MEDS: methylPREDNISolone 40 MG in SYRINGE 0 ML IV SCH ×3 (03:57→16:49)
[2018-08-23 08:02] LABS: BUN Creatinine Ratio 28.7 (10-20); Calcium 9.4 mg/dl (8.5-10.1); Creatinine Clr Calc Pharmacy 65.8 ml/min; Est GFR (Non-African American) 56.1; Potassium 5.1 mmol/L (3.5-5.1)
[2018-08-23 08:04] LABS: Ferritin 126.2 ng/ml (8-388)
[2018-08-23] MEDS: DOXYCYCLINE HYCLATE 100 MG CAP PO SCH ×2 (08:17→20:31)
[2018-08-23] MEDS: CARVEDILOL 12.5 MG TAB PO SCH ×2 (08:18→20:30)
[2018-08-23] MEDS: ASPIRIN 81 MG ECTAB PO SCH (08:18)
[2018-08-23] MEDS: ATORVASTATIN 40 MG TAB PO SCH (08:18)
[2018-08-23] MEDS: guaiFENesin 600 MG TABCR PO SCH ×2 (08:18→20:30)
[2018-08-23] MEDS: TIOTROPIUM BROMIDE 5 PUFF/90 MCG INH INH SCH (08:19)
[2018-08-23] MEDS: INSULIN GLARGINE SOLOSTAR 100 UNITS/ML 3 ML PEN SC SCH (08:20)
[2018-08-23] MEDS: ENOXAPARIN INJ 40 MG/0.4 ML SYR SQ SCH (08:20)
[2018-08-23] MEDS: INSULIN ASPART 100 UNITS/ML 3 ML PEN SC SCH ×4 (08:22→21:25)
[2018-08-23] MEDS: FLUTICASONE/SALMETEROL 250/50 (ADVAIR) 14 PUFF/1 INHALER INH SCH ×2 (08:25→20:31)
--- NOTE | 2018-08-23 20:07 | Hospitalist Progress Note ---
Date of Service August 23, 2018 Assessment & Plan (1) COPD with exacerbation: Again improved. Unfortunately his 2-step O2 test shows he will need 3 L NC at rest and 6 L NC with activity. Cont advair 250/50 1 puff BID. Cont spiriva. Cont mucinex. Cont nebs. Echo today w/o significant pulm HTN however there is RV dilatation likely due to his lung disease. Change IV solumedrol to PO prednisone tomorrow and wean slowly over 10 days. Outpatient pulmonary referral at d/c. Present on Admission?: Yes (2) Acute respiratory failure with hypoxia: 2nd to COPD exacerbation Improved, but he will need O2 at d/c. see above in "COPD." Present on Admission?: Yes (3) BPH (benign prostatic hyperplasia): no issues voiding ok (4) Hyperlipidemia: statin (5) Hypertension: holding ARB due to K of 5.1 today repeat BMP am (6) Coronary artery disease: no ischemic symptoms cont asa,statin,betablocker (7) Diabetes: Improved control s/p lantus, novolog, NPH no lows today resume metformin, victoza at d/c (8) Restless leg syndrome: ferritin wnl cont gabapentin HS (9) DVT prophylaxis: lovenox daily PT, OT evals - cleared for home sister updated 08/23/18 d/c home 08/24/18 Subjective patient again tells me he feels good. breathing is "100% better." he reports minimal PRICE. denies significant cough. 2-step shows need for 3 L NC O2 and 6 L NC O2 w/ activity. no new complaints today. Constitutional: no fever, no chills, no fatigue and no anorexia Respiratory: no cough, no sputum production and no wheezing Cardiovascular: no chest pain Gastrointestinal: no abdominal pain, no nausea and no vomiting Physical Exam Vital Signs (Past 24 Hours): Last Vital Signs Temp 37.1 C 08/23/18 07:46 Pulse 71 08/23/18 16:30 Resp 16 08/23/18 16:30 BP 127/67 08/23/18 16:30 Pulse Ox 92 08/23/18 16:30 Constitutional: well developed and well nourished; no acute distress and not ill appearing ENMT: external ear and nose normal, oropharynx normal Respiratory: Auscultation: + wheezes (occasional); no rales Cardiovascular: Rate/Rhythm: regular rate and regular rhythm Heart Sounds: normal S1 and normal S2; no murmur Vessels: posterior tibial pulses present and dorsalis pedis pulses present; no JVD Extremities: no edema Gastrointestinal (Abdomen): normal bowel sounds, soft, nontender, no hepatosplenomegaly Skin: clubbing of fingernails Psychiatric: Orientation: alert and oriented x 3 Results & Data Laboratory Results Laboratory Results - last 24 hr 08/23/18 08/23/18 08/23/18 06:58 07:34 11:09 Sodium 133 L Potassium 5.1 Chloride 102 Carbon Dioxide 28 Anion Gap 4.0 BUN 37 H Creatinine 1.27 Est Cr Clr Drug Dosing 65.8 Est GFR ( Amer) 65.0 Est GFR (Non-Af Amer) 56.1 BUN/Creatinine Ratio 28.7 H Glucose 180 H POC Glucose 178 H 163 H Calcium 9.4 Ferritin 126.2 08/23/18 16:13 Sodium Potassium Chloride Carbon Dioxide Anion Gap BUN Creatinine Est Cr Clr Drug Dosing Est GFR ( Amer) Est GFR (Non-Af Amer) BUN/Creatinine Ratio Glucose POC Glucose 183 H Calcium Ferritin (1) BPH (benign prostatic hyperplasia) Lower urinary tract symptom presence: symptoms absent Qualified Code(s): N40.0 - Benign prostatic hyperplasia without lower urinary tract symptoms (2) Hyperlipidemia Hyperlipidemia type: unspecified Qualified Code(s): E78.5 - Hyperlipidemia, unspecified (3) Hypertension Hypertension type: essential hypertension Qualified Code(s): I10 - Essential (primary) hypertension (4) Coronary artery disease Coronary Disease-Associated Artery/Lesion type: [place] artery [place] vs. transplanted heart: [place] heart Associated angina: without angina Qualified Code(s): I25.10 - Atherosclerotic heart disease of [place] coronary artery without angina pectoris (5) Diabetes Diabetes mellitus type: type 2 Diabetes mellitus mcfp insulin use: with [place] use Diabetes mellitus complication status: with neurologic complications Diabetes mellitus complication detail: with polyneuropathy Qualified Code(s): E11.42 - Type 2 diabetes mellitus with diabetic polyneuropathy; Z79.4 - alf (current) use of insulin
[2018-08-23] MEDS: GABAPENTIN 300 MG CAP PO SCH (20:35)
[2018-08-23] MEDS: INSULIN HUMAN NPH SC SCH (21:25)
[2018-08-24] MEDS: CARBOHYDRATES FOR HYPOGLYCEMIA PO PRN ×2 (00:10→07:43)
[2018-08-24] MEDS: RAPAFLO~ORDER AWAITING ACTION SCH ×2 (01:12→08:52)
[2018-08-24] MEDS: VICTOZA~ORDER AWAITING ACTION SCH ×2 (01:12→08:52)
[2018-08-24] MEDS: ALBUT/IPRATROP 3MG/0.5MG NEB 3 ML VIAL NEB SCH ×3 (03:28→11:19)
[2018-08-24] MEDS: methylPREDNISolone 40 MG in SYRINGE 0 ML IV SCH (03:55)
[2018-08-24] MEDS: TIOTROPIUM BROMIDE 5 PUFF/90 MCG INH INH SCH (08:55)
[2018-08-24] MEDS: FLUTICASONE/SALMETEROL 250/50 (ADVAIR) 14 PUFF/1 INHALER INH SCH (08:55)
[2018-08-24] MEDS: DOXYCYCLINE HYCLATE 100 MG CAP PO SCH (08:56)
[2018-08-24] MEDS: ENOXAPARIN INJ 40 MG/0.4 ML SYR SQ SCH (08:56)
[2018-08-24] MEDS: ATORVASTATIN 40 MG TAB PO SCH (08:56)
[2018-08-24] MEDS: ASPIRIN 81 MG ECTAB PO SCH (08:56)
[2018-08-24] MEDS: CARVEDILOL 12.5 MG TAB PO SCH (08:56)
[2018-08-24] MEDS: INSULIN ASPART 100 UNITS/ML 3 ML PEN SC SCH ×2 (08:57→13:08)
[2018-08-24] MEDS: guaiFENesin 600 MG TABCR PO SCH (08:57)
[2018-08-24] MEDS: INSULIN GLARGINE SOLOSTAR 100 UNITS/ML 3 ML PEN SC SCH (08:58)
[2018-08-24 10:53] LABS: BUN Creatinine Ratio 28.3 (10-20); Calcium 8.9 mg/dl (8.5-10.1); Est GFR (African American) 72.5; Est GFR (Non-African American) 62.6; Magnesium 2.1 mg/dl (1.8-2.4); Potassium 5.1 mmol/L (3.5-5.1)
--- NOTE | 2018-09-03 02:21 | Discharge Summary ---
Date of Service date of admission - August 21, 2018 date of discharge - August 24, 2018 Admission HPI Per Admitting Provider Mr. Mills is a pleasant 73yo male with history of nonobstructive CAD, DM, HTN, and COPD presenting with SOB. Patient reports that approximately 2.5 weeks ago he began having some muscle cramps in his lower extremities bilaterally, L > R. He had an EMG performed on 26 July which revealed polyneuropathy and right sided radiculopathy (although patient with no right sided complaints). His amitriptyline was discontinued and his gabapentin was increased to 300mg po qHS. He reports that his legs felt swollen after the EMG was performed and he noted a deep sock line on his leg, L >R. He also reports progressive SOB and PRICE. Patient becomes short of breath with ambulating 20 - 30 feet in his home. He has a cough productive for white sputum. He denies CP/ palpitations/dizziness/diaphoresis. Denies edema/weight gain or orthopnea. Denies history of DVT/PE. Patient with longstanding history of tobacco abuse, 2ppd for almost 50 years. He quit 2 weeks ago. He has COPD. No prior hospitalizations in the last year or intubations for COPD. No home O2 use. In the ER patient was tachypneic, RR of 24, saturating 81% on room air. He was placed on 4L NC with improvement in oxygenation to 94%. Patient with no additional complaints at this time Principal Diagnosis COPD with exacerbation Discharge Exam Constitutional well developed and well nourished; no acute distress and not ill appearing ENMT external ear and nose normal, oropharynx normal Respiratory no respiratory distress and does not use accessory muscles Auscultation: + diminished lung sounds and + wheezes (occasional); no rales Cardiovascular Rate/Rhythm: regular rate and regular rhythm Heart Sounds: normal S1 and normal S2; no murmur Vessels: posterior tibial pulses present and dorsalis pedis pulses present; no JVD Extremities: no edema Gastrointestinal (Abdomen) normal bowel sounds, soft, nontender, no hepatosplenomegaly Psychiatric Orientation: alert and oriented x 3 Discharge Data Allergies Allergy/AdvReac Type Severity Reaction Status Date / Time No Known Allergies Allergy Unverified 08/21/18 02:34 Consultations PT, OT Procedures Performed Oxygen 2-step exercise test -- 3 L NC O2 at rest; 6 L with activity Ordered Studies 1. CTA chest: FINDINGS: The thoracic aorta is normal in course and caliber. Study is comprom ised in part due to respiratory and somatic motion. Evaluation of the second third vessels, arise. No evidence for major central pulmonary embolus. Thoracic aorta shows mild atherosclerotic change. It is negative for aneurysm or dissection. Lung parenchyma shows mild emphysematous change. There are no focal infiltrative changes. IMPRESSION: 1. No evidence for a major central or main pulmonary most. 2. Nondiagnostic evaluation of the peripheral arterial vasculature. 2. b/l LE venous duplex negative for DVT. 3. echocardiogram - EF 60-65%, mild RV dilatation but normal systolic function, unable to calculate pulmonary pressures. Trivial aortic stenosis. Hospital Course (1) COPD with exacerbation: Treated in customary fashion with IV steroids, narrow-spectrum antibiotics, nebs, pulmonary toilet, inhalers, and O2. He made gradual improvement in all pulmonary symptoms. Unfortunately his 2-step O2 test showed he will need 3 L NC at rest and 6 L NC with activity. Echo was largely normal although unable to calculate pulmonary pressures. He was transitioned from IV solumedrol to PO prednisone and he will wean slowly. He will also need to complete several more days of PO doxycycline. In addition the patient had advair added to his spiriva. In light of his significant COPD I advised outpatient pulmonary clinic follow- up. Due to the apparent severity of his COPD scripts for a neb machine and duonebs were given to him at discharge. (2) Acute respiratory failure with hypoxia: 2nd to COPD exacerbation Improved as noted above in "COPD exacerbation" but he will need O2 at d/c. NC O2 was arranged for him at discharge. (3) BPH (benign prostatic hyperplasia): no issues while here. (4) Hyperlipidemia: statin (5) Hypertension: The patient's ARB was held and ultimately discontinued due to high-normal K levels seen on the last several BMP checks. He will continue his other meds as previous however. (6) Coronary artery disease: no ischemic symptoms during the hospitalization. cont asa,statin,betablocker. (7) Diabetes: He will continue metformin, victoza, and Humulin NPH at discharge. (8) Restless leg syndrome: ferritin was normal (126). continue gabapentin HS. Total Time Total Time Spent Total Time Spent (In Minutes): 40 Total Time Includes: Examination of the Patient, Discharge Planning, Medication Reconciliation and Communication With Other Providers Discharge Plan Discharge Items Patient Disposition: Home - Self-Care Reason For Visit: shortness of breath Discharge Diagnosis: COPD exacerbation - resolving. Discharge Goals: Diagnostic testing and Therapeutic intervention Activity: Resume your previous activity Exercise/Sports: Wait until after follow-up appointment Non-emergency contact: Primary Care Provider Call non-emergency contact if: you have any medication questions, your symptoms worsen and your temperature is above 100.5 Follow-up/Referrals: Natalia Dozier MD [Primary Care Provider] - Diet: Carb Consistent or DM2 Addtl Provider Instructions: From Dedrick Cook - Hospitalist: You were treated for "COPD exacerbation" with nebulizer treatments, IV steroids, antibiotics, and oxygen. Your symptoms improved but unfortunately we were unable to wean the oxygen off. At this time you will need to continue on the oxygen --- * 3 liters with rest and with sleep * 6 liters with activity and when you leave your home DO NOT SMOKE OR ALLOW SOMEONE TO SMOKE WITH YOUR OXYGEN ON. THIS CAN LEAD TO A HOUSE FIRE. OTHER MEDICATIONS FOR YOUR LUNGS -- * doxycycline antibiotic - 100mg twice daily for 4 days; start TONIGHT. This medication can cause heartburn. It can also cause a rash if you go out in the sun. If you get sun exposure over the next few days be sure to cover up. * advair - 1 puff twice a day EVERY DAY. Rinse your mouth with water after its use. * continue your spiriva as previous. * ipratropium-albuterol nebulizer treatments - recommend 1 treatment every 6 hours scheduled for 3-4 more days, then use as needed thereafter for cough/adam rtness of breath/wheezing. * prednisone - start tomorrow on 08/25/18. Follow instructions on bottle. Continue to remain smoke-free if possible. --- Other instructions - 1. STOP your losartan. 2. LOWER your NPH insulin at bedtime from 50 units to 45 units. 3. Follow-up - * see Dr. Neri within 3-5 days * we will attempt to set you up with a lung specialist at [facility]; we will work on this on Sunday 4. Return to [facility] if - * you have fevers over 100.5 degrees * you have worsening shortness of breath despite taking all of your normal lung medications, nebulizer treatments, oxygen, etc * you have chest pain * any other concerns Prescriptions: New fluticasone propion-salmeterol [Advair Diskus] 250-50 mcg/dose Blister With Device 1 puff inhalation BID Qty: 1 RF: 5 ipratropium-albuterol 0.5 mg-3 mg(2.5 mg base)/3 mL Solution For Nebulization 3 ml NEB Q6H Qty: 1 RF: 2 prednisone 10 mg tablet 10 mg PO DIRECTED Qty: 22 RF: 0 Oxygen Home Liters Per Minute .ROUTE .MEDSUPPLY Qty: 1 RF: 0 Continued atorvastatin 40 mg tablet 40 mg PO DAILY RF: 0 carvedilol 12.5 mg Tablet 12.5 mg PO BID RF: 0 aspirin 81 mg Tablet,Delayed Release (Dr/Ec) 81 mg PO DAILY RF: 0 cyanocobalamin (vitamin B-12) [Vitamin B-12] 500 mcg Tablet 500 mcg PO DAILY RF: 0 Novolog U-100 Insulin aspart 100 unit/mL solution subcut UD RF: 0 metformin 1,000 mg Tablet 1,000 mg PO BID RF: 0 gabapentin 300 mg Capsule 300 mg PO HS RF: 0 furosemide 20 mg tablet 20 mg PO DAILY PRN (Reason: LLE EDEMA) RF: 0 cholecalciferol (vitamin D3) [Vitamin D3] 1,000 unit Tablet 1,000 unit PO DAILY RF: 0 silodosin [Rapaflo] 8 mg capsule 8 mg PO QPM RF: 0 Victoza 3-Kalpesh 0.6 mg/0.1 mL (18 mg/3 mL) pen injector 0.6 mcg subcut DAILY RF: 0 Spiriva Respimat 2.5 mcg/actuation mist 2 puff inhalation DAILY RF: 0 guaifenesin [Mucinex] 600 mg Tablet Extended Release 12hr 600 mg PO DAILY RF: 0 Changed Humulin N NPH U-100 Insulin 100 unit/mL suspension 45 unit subcut HS Qty: 1 RF: 0 Discontinued losartan 100 mg tablet 100 mg PO DAILY RF: 0 Stand-Alone Forms: [facility] Discharge Orders: Discharge Order (Routine); Ordered 08/24/18 Ordered By: Dedrick Cook Admission Data Admit Date/Time: 08/21/18 02:42 Attending Provider: Dedrick Cook Admit Provider: Virginia Lorenzana Primary Care Provider: Natalia Dozier V. Service: Medical Other Interventions: Discharge Summary Assessment (RN) Last Done: 08/24/18 14:13 DC Date/Time DO NOT enter until pt leaves facility: 08/24/18 14:32
== END 2018-08-24 14:32 | disposition home or self-care (01) | DRG 189 ==
LOC: ED 23:05 → SUATTDRO 08-21 02:42 → 2N 08-21 02:42 → 4W 08-22 18:04
DX: E78.5 Hyperlipidemia, unspecified; G25.81 Restless legs syndrome; Z87.891 Personal history of nicotine dependence; I45.10 Unspecified right bundle-branch block; J96.01 Acute respiratory failure with hypoxia; Z79.82 Long term (current) use of aspirin; J44.1 Chronic obstructive pulmonary disease with (acute) exacerbation; Z79.4 Long term (current) use of insulin; Z79.899 Other long term (current) drug therapy; I25.10 Atherosclerotic heart disease of native coronary artery without angina pectoris; N40.0 Benign prostatic hyperplasia without lower urinary tract symptoms; I10 Essential (primary) hypertension; E11.42 Type 2 diabetes mellitus with diabetic polyneuropathy

== ENCOUNTER 2020-04-12 12:00 | Inpatient (IN) ==
[2020-04-12] MEDS ORDERED: cefTRIAXone SODIUM 1,000 MG/50 ML BAG IV STA (12:21)
[2020-04-12] MEDS ORDERED: DAPTOmycin 300 MG in SYRINGE 0 ML IV ONE (12:28)
--- NOTE | 2020-04-12 12:28 | Emergency Department Note ---
Impression & Plan Cellulitis, Olecranon bursitis ED Provider Note NAME: KISHA GREENE AGE: 75 SEX: M : 1945 ARRIVES VIA: Walk-In INFORMANT: Patient ED PROVIDER(S): Mikal Dsouza DO CHIEF COMPLAINT: Left elbow drainage and redness HPI: Patient is a 75-year-old male who presents to the ER for left elbow drainage and redness. He notes it started over the summer with thickening of the skin. It gradually got bigger and bigger and started to swell. He notes it opened up in the past 24 hours. Has been draining green to yellow purulent material. He helped open up and used some scissors to cut away some tissue. He denies any fevers. He notes the redness is getting worse. Denies any headache or change in vision. No chest pain or shortness of breath. No nausea, vomiting or diarrhea. No dysuria, urgency or frequency. ROS: See above HPI for pertinent positives & negatives. A total of 10 systems reviewed and were otherwise negative. PAST MEDICAL HISTORY:See Below PAST SURGICAL HISTORY:See Below FAMILY HISTORY:See Below SOCIAL HISTORY:See Below HOME MEDICATIONS:See Below ALLERGIES:See Below VITALS:See Below PHYSICAL EXAMINATION: GENERAL: Sitting up in bed, alert, well appearing, well nourished, no distress, non-toxic EYE EXAM: normal conjunctiva. OROPHARYNX: no exudate, no erythema, lips, buccal mucosa, and tongue normal and mucous membranes are moist NECK: supple, no nuchal rigidity, no adenopathy, non-tender LUNGS: Clear to auscultation. Normal chest wall mechanics HEART: no murmurs, S1 normal and S2 normal ABDOMEN: abdomen soft, non-tender, normo-active bowel sounds, no masses, no rebound or guarding. UPPER EXTREMITIES: Left elbow with surrounding erythema and green/yellow purulent drainage on the dorsal surface. LOWER EXTREMITIES: No pitting edema. NEURO EXAM: Normal sensorium, cranial nerves II-XII grossly intact, normal speech, no gross weakness of arms, no gross weakness of legs. MEDICAL DECISION MAKING: Patient is a 75-year-old male who presents the ER for redness and swelling of his elbow. On exam he has a clear olecranon bursitis which is inflamed with surrounding cellulitis. On palpation he has green purulent drainage draining from the elbow. Culture was obtained. Labs showed no significant leukocytosis. No significant anemia. BMP with mild hyponatremia. LFTs bilirubin was unremarkable. Rapid Covid was negative. X-ray of the elbow was unremarkable. Patient was given IV daptomycin after discussing the case with Dr. Huerta is agreeable with evaluating the patient as an inpatient. Discussed with the hospitalist for further evaluation. Triage Nursing notes reviewed. Prior medical records reviewed Vital Signs: reviewed and remarkable for HTN Differential diagnosis: Cellulitis, abscess, MRSA infection, DVT, necrotizing fasciitis, dermatitis, drug eruption, allergic reaction, as well as other pathologies. ER treatment provided: See below Diagnostics interpreted by me: ECG: none Cardiac Monitoring: An order was placed for continuous cardiac monitoring. The monitor shows a rate of 84 with sinus rhythm. Laboratory studies: As stated above and show below. Imaging studies: X-ray of the left elbow shows no obvious osteo- Consultation(s): Discussed with Dr. Huerta from orthopedics Discussed with Dr. Dedrick Rushing for further evaluation ED COURSE: Procedures: none Critical Care: None Past Med/Surg History Medical History (Updated 04/12/20 @ 16:44 by Mikal Dsouza DO) Anxiety Anxiety Asymmetrical right sensorineural hearing loss BPH (benign prostatic hyperplasia) BPH with urinary obstruction CAD (coronary artery disease) mild, diffuse disease, 2007 Cardiomyopathy transient idiopathic. EF 35-40% in 2007, improved to 50-55% in September 2016 Cardiomyopathy Controlled type 2 diabetes mellitus with neurologic complication, with long-term current use of insulin COPD (chronic obstructive pulmonary disease) inhalers daily/prn, nebulizer Depression Diabetes type 2, controlled Diabetic peripheral neuropathy Dysesthesia Dyslipidemia GERD without esophagitis Hearing deficit Hyperlipidemia Hypertension Lumbosacral radiculopathy Obesity, Class II, BMI 35-39.9 On home oxygen therapy 3L N/C at all times Osteoarthritis Peripheral neuropathy bilt legs Polyp of sigmoid colon Sleep disturbance Spinal stenosis Tubular adenoma of colon Vitamin D deficiency Surgical History History of arthroscopy of right shoulder History of bilateral cataract extraction History of left inguinal hernia repair x2 History of left knee surgery History of lumbar surgery History of prostate surgery History of sinus surgery History of tooth extraction Family History Father Family history of diabetes mellitus Sister Family history of diabetes mellitus 2 Brother Family history of diabetes mellitus Daughter Melanoma Other No family history of adverse response to anesthesia Denies family history of Colon cancer Ovarian cancer Prostate cancer Myocardial infarction Breast cancer Social History Smoking Status: Current every day smoker Tobacco Type: Cigarettes Age Started Using Tobacco: 27; Age Quit Using Tobacco: 67; packs per day: 2; Years Smoked: 40; Second Hand Exposure: No; Hx Alcohol Use: No Hx Substance Use: No Preferred Language: [place] Communication Ability: Effective 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 Beliefs That Will Affect Care: None marital status: Single Current Living Situation: Alone Feels Safe at Home: Yes Seatbelt Use: always Assistive Devices: Cane, Denture - Upper, Denture - Lower, Glasses, Hearing Aid - Bilateral, Oxygen - Continuous and Walker Allergies Allergies Allergy/AdvReac Type Severity Reaction Status Date / Time No Known Drug Allergies Allergy Verified 02/18/20 10:30 Home Meds Home Medications Medication Instructions Recorded Confirmed aspirin 81 mg PO QAM 08/21/18 04/12/20 cholecalciferol (vitamin D3) 1,000 unit PO HS 08/21/18 04/12/20 [Vitamin D3] cyanocobalamin (vitamin B-12) 500 mcg PO QAM 08/21/18 04/12/20 [Vitamin B-12] silodosin [Rapaflo] 8 mg PO QPM 08/21/18 04/12/20 guaifenesin 600 mg tablet, 600 mg PO DAILY tab 02/03/19 04/12/20 extended release 12 hr insulin NPH isoph U-100 human 40 unit SUBCUT HS 04/12/20 04/12/20 [Humulin N NPH U-100 Insulin] liraglutide [Victoza 3-Kalpesh] 0.6 mg SUBCUT DAILY 04/12/20 04/12/20 Previous Rx's Medication Instructions Recorded atorvastatin 40 mg tablet 40 mg PO HS #90 tab 03/27/19 BD SafetyGlide Insulin Syringe 0.3 #400 ea NS 03/28/19 mL 31 gauge x 5/16" Novolog U-100 Insulin aspart 100 See Rx Instructions SUBCUT 03/28/19 unit/mL subcutaneous solution .COMPLEX #5 vial NS Contour Next Test Strips #400 ea NS 03/31/19 insulin syr/ndl U100 half shannan 0.3 #3 box 03/31/19 mL 31 gauge x 5/16" lancets #4 box 03/31/19 pramipexole 0.5 mg tablet 0.5 mg PO DAILY #90 tab 07/08/19 Oxygen Home #1 ea 08/21/19 fluticasone 250 mcg-salmeterol 50 1 puffs INHALATION BID #60 ea 09/29/19 mcg/dose blistr powdr for inhalation metformin 1,000 mg tablet 1,000 mg PO BID #180 tab 09/29/19 losartan 25 mg tablet 25 mg PO DAILY #90 tab 11/21/19 tiotropium bromide 2.5 2 puff INHALATION QAM #12 gm 11/21/19 mcg/actuation mist for inhalation nebulizer accessories #1 ea 11/24/19 nebulizers #1 ea 11/24/19 nebulizers #1 ea 12/24/19 bupropion HCl 150 mg 24 hr tablet, 150 mg PO BID #60 tab 01/20/20 extended release carvedilol 12.5 mg tablet 12.5 mg PO BID #180 tab 02/09/20 pen needle, diabetic 31 gauge x #90 ea 02/09/2009/26" ipratropium 0.5 mg-albuterol 3 mg 3 ml INHALATION Q4H 30 Days #180 02/12/20 (2.5 mg base)/3 mL nebulization vial soln furosemide 20 mg tablet 20 mg PO DAILY #30 tab 03/25/20 Results & Data (ED) Vital Signs Vital Signs - 24 hr 04/12/20 12:02 04/12/20 12:22 04/12/20 12:50 Temperature 37.1 C Temperature Source Oral Pulse Rate 89 73 Pulse Rate [Finger] 72 Pulse Rate from SpO2 Sensor 74 Pulse Rhythm [Finger] Regular Pulse Strength [Finger] Normal Respiratory Rate 20 20 Respiratory Effort / Characteristics Spontaneous Non-Labored Spontaneous Respiratory Depth Normal Normal Respiratory Pattern Regular Regular Blood Pressure 159/78 H 168/74 H Blood Pressure [Right Arm] 168/74 H Blood Pressure Mean 105 116 Blood Pressure Mean [Right Arm] 105 Blood Pressure Position [Right Arm] Sitting Pulse Oximetry 89 L 95 Oxygen Delivery Method Nasal Cannula Room Air Nasal Cannula Oxygen Flow Rate 4 4 Sepsis Recent Fever Within 48 Hours No Sepsis New/Unexplained Change in Mental Status N/A Sepsis Action Taken by Nursing No Action Required 04/12/20 13:05 04/12/20 13:10 04/12/20 13:20 Temperature Temperature Source Pulse Rate 73 74 76 Pulse Rate [Finger] Pulse Rate from SpO2 Sensor 74 73 75 Pulse Rhythm [Finger] Pulse Strength [Finger] Respiratory Rate 19 25 H 19 Respiratory Effort / Characteristics Respiratory Depth Respiratory Pattern Blood Pressure Blood Pressure [Right Arm] Blood Pressure Mean Blood Pressure Mean [Right Arm] Blood Pressure Position [Right Arm] Pulse Oximetry 95 95 96 Oxygen Delivery Method Nasal Cannula Nasal Cannula Nasal Cannula Oxygen Flow Rate 4 4 4 Sepsis Recent Fever Within 48 Hours Sepsis New/Unexplained Change in Mental Status Sepsis Action Taken by Nursing 04/12/20 13:30 Temperature Temperature Source Pulse Rate 69 Pulse Rate [Finger] Pulse Rate from SpO2 Sensor 71 Pulse Rhythm [Finger] Pulse Strength [Finger] Respiratory Rate 26 H Respiratory Effort / Characteristics Respiratory Depth Respiratory Pattern Blood Pressure Blood Pressure [Right Arm] Blood Pressure Mean Blood Pressure Mean [Right Arm] Blood Pressure Position [Right Arm] Pulse Oximetry 95 Oxygen Delivery Method Nasal Cannula Oxygen Flow Rate 4 Sepsis Recent Fever Within 48 Hours Sepsis New/Unexplained Change in Mental Status Sepsis Action Taken by Nursing Laboratory Data Result diagrams: 04/12/20 12:36 04/12/20 12:36 Lab Results 04/12/20 04/12/20 04/12/20 Range/Units 12:36 12:36 14:15 WBC 10.53 (4.8-10.8) K/uL RBC 3.93 L (4.7-6.1) M/uL Hgb 12.0 L (14.0-18.0) g/dL Hct 37.4 L (42-52) % MCV 95.2 (80-100) fL MCH 30.5 (25-34) pg MCHC 32.1 (32-36) g/dL RDW Std Deviation 47.3 H (36.4-46.3) fL RDW Coeff of Pritesh 13.5 (11.5-14.5) % Plt Count 320 (130-400) K/uL MPV 9.0 (7.4-10.4) fL Immature Gran % (Auto) 0.3 % Neut % (Auto) 69.9 % Lymph % (Auto) 16.1 % Morgan % (Auto) 10.1 % Eos % (Auto) 3.2 % Baso % (Auto) 0.4 % Neut # (Auto) 7.36 H (1.4-6.5) K/uL Lymph # (Auto) 1.70 (1.2-3.4) K/uL Morgan # (Auto) 1.06 H (0.11-0.59) K/uL Eos # (Auto) 0.34 (0-0.5) K/uL Baso # (Auto) 0.04 (0-0.2) K/uL Immature Gran # (Auto) 0.03 H (0.00-0.02) K/uL Sodium 134 L (136-145) mmol/L Potassium 4.8 (3.5-5.1) mmol/L Chloride 99 (98-107) mmol/L Carbon Dioxide 34 H (21-32) mmol/L Anion Gap 1.0 L (3-11) BUN 26 H (7-18) mg/dl Creatinine 1.28 (0.6-1.4) mg/dl Est Cr Clr Drug Dosing 67.1 ml/min Est GFR ( Amer) 63.5 Est GFR (Non-Af Amer) 54.8 BUN/Creatinine Ratio 20.6 H (10-20) Glucose 144 H (70-99) mg/dl Calcium 9.2 (8.5-10.1) mg/dl Total Bilirubin 0.5 (0.2-1) mg/dl AST 16 (15-37) U/L ALT 17 (12-78) U/L Alkaline Phosphatase 77 (45-117) U/L Total Protein 8.0 (6.4-8.2) gm/dl Albumin 3.1 L (3.4-5.0) gm/dl Globulin 4.9 H (2.5-4.0) gm/dl Albumin/Globulin Ratio 0.6 L (0.9-2) SARS-CoV-2 Ag (Rapid) Negative (Negative) Administered Medications Discontinued Medications Ceftriaxone Sodium (Rocephin) 1,000 mg in 50 mls @ 100 mls/hr IV NOW STA Stop: 04/12/20 12:50 Last Admin: 04/12/20 14:31 Dose: Not Given Documented by: [id number] Daptomycin 300 mg/ Syringe 6 mls @ 3 mls/min IV NOW ONE; Protocol Stop: 04/12/20 12:29 Last Admin: 04/12/20 12:51 Dose: 3 mls/min Documented by: [id number] Discharge Plan Visit Data Chief Complaint: Elbow Injury/Pain Stated Complaint: ELBOW GIVING PROBLEMS ED Provider: Mikal Dsouza Discharge Problem: Cellulitis, Olecranon bursitis Patient Disposition: Admitted As Inpatient Discharge Instructions Interventions: ED Discharge Assessment Last Done: 04/12/20 15:53 Discharge Problem: Cellulitis Qualifiers: Site of cellulitis: unspecified site Qualified Code(s): L03.90 - Cellulitis, unspecified Olecranon bursitis Qualifiers: Laterality: left Qualified Code(s): M70.22 - Olecranon bursitis, left elbow
--- NOTE | 2020-04-12 12:48 | XRay Report ---
XR elbow LT min 3V routine HISTORY: 75 years-old Male l elbow pain acute left elbow pain without trauma COMPARISON: None TECHNIQUE: 3 views of the left elbow FINDINGS: Moderate soft tissue prominence of the dorsal tissues with cutaneous irregularity of the soft tissues superficial to the olecranon process measuring 2.0 cm. Small enthesophyte of the olecranon process w ith small linear dystrophic calcification of the distal triceps. Mild osteoarthritis of the elbow wit hout acute fracture, dislocation, opaque foreign body or large joint effusion. IMPRESSION: 1. No acute fracture or dislocation. 2. Moderate dorsal soft tissue swelling with cutaneous ulceration superficial to the olecranon proces s. ACT 112: Negative or not required by law. The above report was generated using voice recognition software. It may contain grammatical, syntax o r spelling errors. Electronically signed by: Ken Simon M.D. 04/12/2020 12:47 PM
[2020-04-12 12:55] LABS: Basophils # (auto) 0.04 K/uL (0-0.2); Basophils % (auto) 0.4 %; Eosinophils # (auto) 0.34 K/uL (0-0.5); Eosinophils % (auto) 3.2 %; Hematocrit (blood only) 37.4 % (42-52); Immature Granulocytes # (auto) 0.03 K/uL (0.00-0.02); Immature Granulocytes % (auto) 0.3 %; Lymphocytes % (auto) 16.1 %; Mean Corpuscular Hemoglobin 30.5 pg (25-34); Mean Corpuscular Hgb Conc 32.1 g/dL (32-36); Mean Corpuscular Volume 95.2 fL (80-100); Monocytes # (auto) 1.06 K/uL (0.11-0.59); Monocytes % (auto) 10.1 %; Neutrophils # (auto) 7.36 K/uL (1.4-6.5); Neutrophils % (auto) 69.9 %; Platelet Count 320 K/uL (130-400); RDW Coefficient of Variation 13.5 % (11.5-14.5); RDW Standard Deviation 47.3 fL (36.4-46.3); Red Blood Count 3.93 M/uL (4.7-6.1); White Blood Count 10.53 K/uL (4.8-10.8)
[2020-04-12 13:20] LABS: Albumin Level 3.1 gm/dl (3.4-5.0); BUN Creatinine Ratio 20.6 (10-20); Calcium 9.2 mg/dl (8.5-10.1); Creatinine Clr Calc Pharmacy 67.1 ml/min; Est GFR (African American) 63.5; Est GFR (Non-African American) 54.8; Potassium 4.8 mmol/L (3.5-5.1)
[2020-04-12 13:23] LABS: Albumin Globulin Ratio 0.6 (0.9-2); Bilirubin,Total 0.5 mg/dl (0.2-1); Globulin 4.9 gm/dl (2.5-4.0)
--- NOTE | 2020-04-12 15:24 | History & Physical Report ---
Date of Service April 12, 2020 Assessment & Plan (1) Chronic respiratory failure with hypoxia: Pelon Mills is a 75 year old man with PMH COPD, CAD, DMII who presents with a left arm wound. Left arm wound Patient with large left arm wound overlying olecranon oozing blood and greenish yellow pus By patient's description sounds like it started out as a small lump and dry callous and then progressed to a golf ball size tender lump on the end of his elbow. He picked and picked at this until it opened yesterday and he even used scissors to try to open it up further Denies systemic symptoms vitals stable at present XR elbow without evidence of osteoarthritis though wound is very nearly overlying olecranon and could have been from olecranon burisitis Initial wound gram stain showing gram positive cocci in clusters, given ceftriaxone and daptomycin in ED Will continue daptomycin 4mg/kg moving forward Orthopedic surgery consulted for possible debridement Wound care consulted Patient NPO for possible procedure COPD Stable combivent q4h scheduled On 4L o2 chronically HTN Continue home coreg and losartan Dyslipidemia Holding home atorvastatin for now as daptomycin and atorvastatin can combine to increase likelihood of myalgias Restart on discharge BPH Continue home rapaflo DMII Holding home PO medications NPO diet for now, placing on sliding scale, will add basal as needed once diet resumes. Restless Leg Syndrome Continue home pramipexole DVT PPx: SCD pending surgical intervention F/E/N: NPO at midnight pending possible intervention Dispo: med Tele pending ortho evaluation Full Code (2) PVD (peripheral vascular disease): (3) Anxiety: (4) Asymmetrical right sensorineural hearing loss: (5) Cardiomyopathy: (6) Controlled type 2 diabetes mellitus with neurologic complication, with long- term current use of insulin: (7) Dyslipidemia: (8) Obesity, Class II, BMI 35-39.9: (9) COPD (chronic obstructive pulmonary disease): (10) Hypertension: (11) BPH (benign prostatic hyperplasia): (12) Restless leg syndrome: (13) Olecranon bursa abscess: (14) Purulent abscess: History of Present Illness Chief Complaint: Suppurative wound overlying olecranon process Primary Care Provider: Natalia Dozier MD Pelon Mills is a 75 year old man with a past medical history significant for COPD (current every day 1/2 pack smoker on 3-4 L O2 at home), DMII (A1C consistently below 7), peripheral vascular disease, HTN, non ischemic cardiomyopathy most recent echo with EF of 45%, history of catheterization with some atherosclerotic disease not requiring stenting and without angina, anemia, BPH, and obesity who presents to the emergency department today secondary to a wound on his left elbow. Patient has been dealing with this area for several months, initially he had a dry skin patch which became a large callous. This callous then became enlarged swollen red and tender. This opened up yesterday with bloody and suppurative discharge and patient says it has been draining yellow green pus like fluid as well as blood. He admits to picking at the area incessantly and says he even used scissors to remove a piece of his tissue in the area. He denies any systemic symptoms, no fevers, chills, sweats, weight gain, weight loss, nausea, vomiting, diarrhea, chest pain, shortness of breath (beyond his usual) spreading red rash, pain of underlying arm, or loss of fucntion of affected arm. Patient has good mobility at the left elbow joint with a comparable range of motion to the right arm. Patient does have tenderness to palpation immediately around the wound, unable to see any bone in wound. Forearm and proximal arm without red rash or streaking, mild red rash and thickened skin around large (3-4 cm) wound with some heat and tenderness compared to surrounding skin. On admission to the emergency department patient is stable with vitals significant for hypertension, and hypoxia at baseline, oxygenating well on 4L of home O2. He denies any other complaints than the elbow. Labwork significant for normal white count, anemia with hemoglobin around 12, sodium of 134, Bun elevated to 26 creatinine of 1.28. COVID test negative. XR of the left elbow showing no acute fracture or dislocation, and ulceration with edema above bone, no obvious evidence of bony involvement. Patient was discussed with Dr. Huerta of [place] orthopedic surgery who was agreeable to admitting the patient and evaluating for debridement of the wound. Patient is a long time smoker, did have a period of being tobacco free but started again after his about three years ago. He averages about a half a pack a day. non drinker no drug use. Patient would like to be a full code. Allergies Allergy/AdvReac Type Severity Reaction Status Date / Time No Known Drug Allergies Allergy Verified 02/18/20 10:30 Home Medications Medication Instructions Recorded Confirmed Type aspirin 81 mg PO QAM 08/21/18 04/12/20 History cholecalciferol (vitamin D3) 1,000 unit PO HS 08/21/18 04/12/20 History [Vitamin D3] cyanocobalamin (vitamin B-12) 500 mcg PO QAM 08/21/18 04/12/20 History [Vitamin B-12] silodosin [Rapaflo] 8 mg PO QPM 08/21/18 04/12/20 History guaifenesin 600 mg tablet, 600 mg PO DAILY tab 02/03/19 04/12/20 History extended release 12 hr atorvastatin 40 mg tablet 40 mg PO HS #90 tab 03/27/19 04/12/20 Rx BD SafetyGlide Insulin Syringe 0.3 #400 ea NS 03/28/19 02/18/20 Rx mL 31 gauge x 5/16" Novolog U-100 Insulin aspart 100 See Rx Instructions SUBCUT 03/28/19 04/12/20 Rx unit/mL subcutaneous solution .COMPLEX #5 vial NS Contour Next Test Strips #400 ea NS 03/31/19 02/18/20 Rx insulin syr/ndl U100 half shannan 0.3 #3 box 03/31/19 02/18/20 Rx mL 31 gauge x 5/16" lancets #4 box 03/31/19 02/18/20 Rx pramipexole 0.5 mg tablet 0.5 mg PO DAILY #90 tab 07/08/19 04/12/20 Rx Oxygen Home #1 ea 08/21/19 02/18/20 Rx fluticasone 250 mcg-salmeterol 50 1 puffs INHALATION BID #60 ea 09/29/19 04/12/20 Rx mcg/dose blistr powdr for inhalation metformin 1,000 mg tablet 1,000 mg PO BID #180 tab 09/29/19 04/12/20 Rx losartan 25 mg tablet 25 mg PO DAILY #90 tab 11/21/19 04/12/20 Rx tiotropium bromide 2.5 2 puff INHALATION QAM #12 gm 11/21/19 04/12/20 Rx mcg/actuation mist for inhalation nebulizer accessories #1 ea 11/24/19 02/18/20 Rx nebulizers #1 ea 11/24/19 02/18/20 Rx nebulizers #1 ea 12/24/19 02/18/20 Rx bupropion HCl 150 mg 24 hr tablet, 150 mg PO BID #60 tab 01/20/20 04/12/20 Rx extended release carvedilol 12.5 mg tablet 12.5 mg PO BID #180 tab 02/09/20 04/12/20 Rx pen needle, diabetic 31 gauge x #90 ea 02/09/20 02/18/20 Rx 5/16" ipratropium 0.5 mg-albuterol 3 mg 3 ml INHALATION Q4H 30 Days #180 02/12/20 04/12/20 Rx (2.5 mg base)/3 mL nebulization vial soln furosemide 20 mg tablet 20 mg PO DAILY #30 tab 03/25/20 04/12/20 Rx insulin NPH isoph U-100 human 40 unit SUBCUT HS 04/12/20 04/12/20 History [Humulin N NPH U-100 Insulin] liraglutide [Victoza 3-Kalpesh] 0.6 mg SUBCUT DAILY 04/12/20 04/12/20 History Past Med/Surg History Medical History (Updated 04/12/20 @ 16:44 by Mikal Dsouza DO) Anxiety Anxiety Asymmetrical right sensorineural hearing loss BPH (benign prostatic hyperplasia) BPH with urinary obstruction CAD (coronary artery disease) mild, diffuse disease, 2007 Cardiomyopathy transient idiopathic. EF 35-40% in 2007, improved to 50-55% in September 2016 Cardiomyopathy Controlled type 2 diabetes mellitus with neurologic complication, with long-term current use of insulin COPD (chronic obstructive pulmonary disease) inhalers daily/prn, nebulizer Depression Diabetes type 2, controlled Diabetic peripheral neuropathy Dysesthesia Dyslipidemia GERD without esophagitis Hearing deficit Hyperlipidemia Hypertension Lumbosacral radiculopathy Obesity, Class II, BMI 35-39.9 On home oxygen therapy 3L [place] at all times Osteoarthritis Peripheral neuropathy bilt legs Polyp of sigmoid colon Sleep disturbance Spinal stenosis Tubular adenoma of colon Vitamin D deficiency Surgical History History of arthroscopy of right shoulder History of bilateral cataract extraction History of left inguinal hernia repair x2 History of left knee surgery History of lumbar surgery History of prostate surgery History of sinus surgery History of tooth extraction Family History Father Family history of diabetes mellitus Sister Family history of diabetes mellitus 2 Brother Family history of diabetes mellitus Daughter Melanoma Other No family history of adverse response to anesthesia Denies family history of Colon cancer Ovarian cancer Prostate cancer Myocardial infarction Breast cancer Social History Smoking Status: Current every day smoker Tobacco Type: Cigarettes Age Started Using Tobacco: 27; Age Quit Using Tobacco: 67; packs per day: 2; Years Smoked: 40; Second Hand Exposure: No; Do You Dip or Chew Tobacco: No; Hx Alcohol Use: No Hx Substance Use: No Preferred Language: Maori Communication Ability: Effective Mexican Food Maker Required: No Beliefs That Will Affect Care: None marital status: Single Current Living Situation: Alone Other Information That Helps Us Care for You: No Feels Safe at Home: Yes Safety Concerns: Feels Safe At This Time Seatbelt Use: always Assistive Devices: Walker Review of Systems Review of Systems: All systems reviewed & are unremarkable except as noted in HPI & below Physical Exam Constitutional: + obese, cooperative and comfortable; no acute distress, no altered mental status and not frail appearing very hard of hearing Eyes: PERRL, conjunctivae normal, anicteric sclerae ENMT: external ear and nose normal, oropharynx normal Respiratory: + labored breathing and + uses accessory muscles; no respiratory distress Auscultation: + diminished lung sounds, + rales and + wheezes end expiratory wheezes and diminished lung sounds globally rales at bases. Cardiovascular: Rate/Rhythm: regular rate and regular rhythm Heart Sounds: no click, no gallop, no murmur and no cardiac rub Vessels: no JVD Extremities: no calf tenderness Gastrointestinal (Abdomen): normal bowel sounds, soft, nontender, no hepatosplenomegaly Musculoskeletal: Range of motion on left almost equal to right, seemed to be slightly impaired in flexion by a handful of degrees and limited by swelling. Strength intact of musculature distal and proximal to the wound. Triceps function normal, palpation of proximal ulna or radius or distal humerus all without pain. Skin: large, (3-4cm) wound overlying olecranon process. Wound is deep with active oozing of blood and yellow tinged purulent materail. Wound is complex and extends below the skin proximally up the dorsal aspect of the arm. tender to t ouch, surrounding ring of erythematous tissue, no streaking, no evidence of any other cellulitis Neurologic: Patient neurovascularly intact distal to wound, radial ulnar and median nerves intact and functioning well. Results & Data Results & Data ([facility]) Vital Signs (Past 12 Hours) Vital Signs Temp Pulse Pulse Resp BP BP Pulse Ox 04/12/20 15:15 163/82 H 98 04/12/20 15:14 87 22 163/82 H 97 04/12/20 13:30 69 26 H 95 04/12/20 13:20 76 19 96 04/12/20 13:10 74 25 H 95 04/12/20 13:05 73 19 95 04/12/20 12:50 73 72 20 168/74 H 168/74 H 95 04/12/20 12:02 37.1 C 89 20 159/78 H 89 L Supervising Physician Co-Signing Physician Notes Patient seen and examined independently of PGY-3 Dr. Fernandez. Agree with history, exam findings, assessment and plan of care as outlined. In brief, Mr. Mills is a 75 year old male admitted with concerns for infected left olecranon bursa that has been oozing purulent material. Denies systemic symptoms of infection. Some pain in the distal triceps and swelling in the area as well. Full range of motion of the bilateral elbows. There is an open and draining wound over the left olecranon. Drainage is opaque. Surrounding skin is warm and mildly erythematous. S/p dapto and ceftriaxone in the ED. Will continue dapto (culture growing gram pos cocci). Appreciate ortho recommendations. NPO at [place] in the event that he goes to the OR tomorrow. COPD, chronic hypoxic resp failure on 4L chronically. Wheezing throughout. Continue home inhaler regimen. DM. Watch sugars. ssi. Other chronic issues are stable and home medications continued. Dispo: pending clinical improvement. Resident Activity Tracking Resident Involvement: Resident Care Provided Care Provided: Adult [facility] Medicine (1) BPH (benign prostatic hyperplasia) Lower urinary tract symptom presence: symptoms absent Qualified Code(s): N40.0 - Benign prostatic hyperplasia without lower urinary tract symptoms (2) COPD (chronic obstructive pulmonary disease) COPD type: COPD with acute exacerbation Qualified Code(s): J44.1 - Chronic obstructive pulmonary disease with (acute) exacerbation (3) Hypertension Hypertension type: essential hypertension Qualified Code(s): I10 - Essential (primary) hypertension
[2020-04-12] MEDS ORDERED: DEXTROSE 50% 50 ML SYRINGE IV PRN (16:42)
[2020-04-12] MEDS ORDERED: ONDANSETRON INJ 2 MG/ML 2 ML VIAL IV PRN (16:42)
[2020-04-12] MEDS ORDERED: CARBOHYDRATES FOR HYPOGLYCEMIA PO PRN (16:42)
[2020-04-12] MEDS ORDERED: GLUCOSE 40% GEL 15 GM TUBE PO PRN (16:42)
[2020-04-12] MEDS ORDERED: DC ALL PREVIOUSLY ORDERED DIABETES MEDS ONE (16:42)
[2020-04-12] MEDS ORDERED: ACETAMINOPHEN 325 MG TAB PO PRN (16:42)
[2020-04-12] MEDS ORDERED: GLUCAGON FOR INJ 1 MG VIAL SQ PRN (16:42)
[2020-04-12] MEDS ORDERED: GLUCOSE 10 TABS/TUBE PO PRN (16:42)
[2020-04-12] MEDS ORDERED: POLYETHYLENE (MIRALAX) 17 GM PACK PO PRN (16:42)
[2020-04-12] MEDS: INSULIN ASPART 100 UNITS/ML 3 ML PEN SC SCH ×2 (17:37→20:30)
[2020-04-12] MEDS ORDERED: ALBUTEROL HFA 8 GM INHALER INH SCH (17:45)
[2020-04-12] MEDS ORDERED: IPRATROPIUM BROMIDE HFA INHALER INH SCH ×2 (17:45)
[2020-04-12] MEDS ORDERED: IPRATROPIUM BROMIDE/ALBUTEROL respimat INH INH SCH (17:45)
[2020-04-12] MEDS: Albuterol HFA 8 GM Inhaler (Combivent Respimat P&T Subs) INH SCH ×2 (18:06→22:44)
[2020-04-12] MEDS: Ipratropium HFA Inhaler (Combivent Respimat P&T Subs) INH SCH ×2 (18:06→22:44)
[2020-04-12] MEDS ORDERED: ALBUT/IPRATROP 3MG/0.5MG NEB 3 ML VIAL NEB SCH (19:00)
[2020-04-12] MEDS: carvediloL 12.5 MG TAB PO SCH (20:30)
[2020-04-12] MEDS: ATORVASTATIN 40 MG TAB PO SCH (20:30)
[2020-04-12] MEDS: CHOLECALCIFEROL 1,000 UNITS 25 MCG TAB PO SCH (20:30)
[2020-04-12] MEDS: buPROPion XL 150 MG TABCR PO SCH (20:30)
[2020-04-13] MEDS: SODIUM CHLORIDE 0.45 % 1,000 ML IV SCH ×2 (00:28→17:26)
[2020-04-13] MEDS: Albuterol HFA 8 GM Inhaler (Combivent Respimat P&T Subs) INH SCH ×6 (03:10→23:14)
[2020-04-13] MEDS: Ipratropium HFA Inhaler (Combivent Respimat P&T Subs) INH SCH ×6 (03:10→23:13)
--- NOTE | 2020-04-13 06:54 | Orthopedic Consultation ---
Date of Consultation April 13, 2020 Assessment & Plan (1) Septic olecranon bursitis of left elbow: At this point I feel this is best treated with an open irrigation debridement of the left elbow. He is currently n.p.o. He understands the risks, benefits, and alternatives to procedures like to proceed. Questions are answered at bedside today and there was a decision to proceed with urgent surgery. He was put on the operative schedule and likely one of my partners would be able to do the procedure later today. We will continue the IV daptomycin for now. Present on Admission?: Yes History of Present Illness Reason for Consultation: Septic olecranon bursitis left elbow Attending Physician: Melvi Hernadez, History of Present Illness Pelon is a pleasant 75-year-old male who is an insulin-dependent diabetic. He noticed a callus formation on his left elbow over a week ago. It then grew into a golf ball sized mass. He was picking at it and it eventually opened up on Sunday. It was draining some green and yellow purulent discharge. He then came to the emergency room. X-rays were negative. He was admitted to the hospitalist service with a septic olecranon bursa. Orthopedics was consulted to evaluate and treat. Allergies Allergy/AdvReac Type Severity Reaction Status Date / Time No Known Drug Allergies Allergy Verified 02/18/20 10:30 Home Medications Medication Instructions Recorded Confirmed Type aspirin 81 mg PO QAM 08/21/18 04/12/20 History cholecalciferol (vitamin D3) 1,000 unit PO HS 08/21/18 04/12/20 History [Vitamin D3] cyanocobalamin (vitamin B-12) 500 mcg PO QAM 08/21/18 04/12/20 History [Vitamin B-12] silodosin [Rapaflo] 8 mg PO QPM 08/21/18 04/12/20 History guaifenesin 600 mg tablet, 600 mg PO DAILY tab 02/03/19 04/12/20 History extended release 12 hr atorvastatin 40 mg tablet 40 mg PO HS #90 tab 03/27/19 04/12/20 Rx BD SafetyGlide Insulin Syringe 0.3 #400 ea NS 03/28/19 02/18/20 Rx mL 31 gauge x 5/16" Novolog U-100 Insulin aspart 100 See Rx Instructions SUBCUT 03/28/19 04/12/20 Rx unit/mL subcutaneous solution .COMPLEX #5 vial NS Contour Next Test Strips #400 ea NS 03/31/19 02/18/20 Rx insulin syr/ndl U100 half shannan 0.3 #3 box 03/31/19 02/18/20 Rx mL 31 gauge x 5/16" lancets #4 box 03/31/19 02/18/20 Rx pramipexole 0.5 mg tablet 0.5 mg PO DAILY #90 tab 07/08/19 04/12/20 Rx Oxygen Home #1 ea 08/21/19 02/18/20 Rx fluticasone 250 mcg-salmeterol 50 1 puffs INHALATION BID #60 ea 09/29/19 04/12/20 Rx mcg/dose blistr powdr for inhalation metformin 1,000 mg tablet 1,000 mg PO BID #180 tab 09/29/19 04/12/20 Rx losartan 25 mg tablet 25 mg PO DAILY #90 tab 11/21/19 04/12/20 Rx tiotropium bromide 2.5 2 puff INHALATION QAM #12 gm 11/21/19 04/12/20 Rx mcg/actuation mist for inhalation nebulizer accessories #1 ea 11/24/19 02/18/20 Rx nebulizers #1 ea 11/24/19 02/18/20 Rx nebulizers #1 ea 12/24/19 02/18/20 Rx bupropion HCl 150 mg 24 hr tablet, 150 mg PO BID #60 tab 01/20/20 04/12/20 Rx extended release carvedilol 12.5 mg tablet 12.5 mg PO BID #180 tab 02/09/20 04/12/20 Rx pen needle, diabetic 31 gauge x #90 ea 02/09/20 02/18/20 Rx 5/16" ipratropium 0.5 mg-albuterol 3 mg 3 ml INHALATION Q4H 30 Days #180 02/12/20 04/12/20 Rx (2.5 mg base)/3 mL nebulization vial soln furosemide 20 mg tablet 20 mg PO DAILY #30 tab 03/25/20 04/12/20 Rx insulin NPH isoph U-100 human 40 unit SUBCUT HS 04/12/20 04/12/20 History [Humulin N NPH U-100 Insulin] liraglutide [Victoza 3-Kalpesh] 0.6 mg SUBCUT DAILY 04/12/20 04/12/20 History Patient History Medical History (Updated 04/13/20 @ 06:52 by Vickey Huerta DO) Anxiety Anxiety Asymmetrical right sensorineural hearing loss BPH (benign prostatic hyperplasia) BPH with urinary obstruction CAD (coronary artery disease) mild, diffuse disease, 2007 Cardiomyopathy transient idiopathic. EF 35-40% in 2007, improved to 50-55% in September 2016 Cardiomyopathy Controlled type 2 diabetes mellitus with neurologic complication, with long-term current use of insulin COPD (chronic obstructive pulmonary disease) inhalers daily/prn, nebulizer Depression Diabetes type 2, controlled Diabetic peripheral neuropathy Dysesthesia Dyslipidemia GERD without esophagitis Hearing deficit Hyperlipidemia Hypertension Lumbosacral radiculopathy Obesity, Class II, BMI 35-39.9 On home oxygen therapy 3L N/[place] at all times Osteoarthritis Peripheral neuropathy bilt legs Polyp of sigmoid colon Sleep disturbance Spinal stenosis Tubular adenoma of colon Vitamin D deficiency Surgical History History of arthroscopy of right shoulder History of bilateral cataract extraction History of left inguinal hernia repair x2 History of left knee surgery History of lumbar surgery History of prostate surgery History of sinus surgery History of tooth extraction Family History Father Family history of diabetes mellitus Sister Family history of diabetes mellitus 2 Brother Family history of diabetes mellitus Daughter Melanoma Other No family history of adverse response to anesthesia Denies family history of Colon cancer Ovarian cancer Prostate cancer Myocardial infarction Breast cancer Social History Smoking Status: Current every day smoker Tobacco Type: Cigarettes Age Started Using Tobacco: 27; Age Quit Using Tobacco: 67; packs per day: 2; Years Smoked: 40; Second Hand Exposure: No; Do You Dip or Chew Tobacco: No; Hx Alcohol Use: No Hx Substance Use: No Preferred Language: Belarusian Communication Ability: Effective Client Care Specialist Required: No Beliefs That Will Affect Care: None marital status: Single Current Living Situation: Alone Other Information That Helps Us Care for You: No Feels Safe at Home: Yes Safety Concerns: Feels Safe At This Time Seatbelt Use: always Assistive Devices: Walker Review of Systems Review of Systems: All systems reviewed & are unremarkable except as noted in HPI & below Physical Exam Constitutional: WD/WN, vitals as above Eyes: PERRL, conjunctivae normal, anicteric sclerae ENMT: external ear and nose normal, oropharynx normal Neck: trachea midline, no thyromegaly Respiratory: normal respiratory effort Cardiovascular: RRR, no murmur, no edema Gastrointestinal (Abdomen): normal bowel sounds, soft, nontender, no hepatosplenomegaly Musculoskeletal: On physical examination of the left elbow, there is a 1 cm ulceration over the left olecranon bursa. It has purulent discharge coming from it. There is some bogginess to the bursa and it feels like there is still an abscess beneath. There is not a lot of cellulitis. He has no pain with range of motion of his elbow. He is neurovascular intact. Psychiatric: A+Ox3, euthymic affect Results & Data ([facility]) Vital Signs (Past 12 Hours) Vital Signs Temp Pulse Pulse Resp BP Pulse Ox 04/13/20 06:11 71 20 93 04/13/20 04:32 78 04/13/20 04:27 36.6 C 70 20 124/65 95 04/13/20 03:10 75 18 93 04/12/20 23:25 36.5 C 74 20 120/64 94 04/12/20 22:45 82 20 91 04/12/20 19:32 36.7 C 76 20 136/64 93 PG Care Time/CCT Total # of Minutes Spent Total Time Spent with Patient: Total time spent is greater than 50% in coordination of care (as documented) at patient's floor/unit and/or counseling patient: Coding Level of Care Code 67987 Office/OBS Consult Lvl 5 Diagnoses Septic olecranon bursitis of left elbow M71.122
--- NOTE | 2020-04-13 07:07 | Hospitalist Progress Note ---
Date of Service April 13, 2020 Assessment & Plan (1) Chronic respiratory failure with hypoxia: Pelon Mills is a 75 year old man with PMH COPD, CAD, DMII who presents with a left olecranon bursitis abscess. Left olecranon bursitis abscess - prior to admission, patient manually attempted to open swollen bursa with a pair of kitchen scissors - use of non-sterile equipment undoubtedly nidus for infection - XR of elbow showing moderate dorsal soft tissue swelling with cutaneous ulceration superficial to the olecranon process - Wound culture obtained on admission growing staph species. Culture from the OR pending. - patient initially started on ceftriaxone and daptomycin. Ceftriaxone discontinued after one dose. Continue Daptomycin 4mg/kg q 24 hours - afebrile, hemodynamically stable. no concern for sepsis - orthopedics consulted, planning to take patient OR today for surgical debridement - wound care consulted COPD - Stable , no concern for exacerbation - expiratory wheezes appreciated on exam - combivent q4h scheduled - Currently saturating 91% on 4L via [place] (home requirement) HTN - Continue home coreg and losartan Dyslipidemia - Holding home atorvastatin in the setting of daptomycin use (increased likelihood of myalgias when used together) - Restart on discharge BPH - Continue home rapaflo DMII - HbA1c at 8.0 - hold home oral agents - basal/bolus insulin prn while inpatient Restless Leg Syndrome - Continue home pramipexole DVT PPx: SCDs, will administer Lovenox in post-operative period F/E/N: NPO until OR, then change to heart healthy, carb consistent diet. Dispo: med/surg with tele Code: Full Code (2) PVD (peripheral vascular disease): (3) Anxiety: (4) Asymmetrical right sensorineural hearing loss: (5) Cardiomyopathy: (6) Controlled type 2 diabetes mellitus with neurologic complication, with long- term current use of insulin: (7) Dyslipidemia: (8) Obesity, Class II, BMI 35-39.9: (9) COPD (chronic obstructive pulmonary disease): (10) Hypertension: (11) BPH (benign prostatic hyperplasia): (12) Restless leg syndrome: (13) Olecranon bursa abscess: (14) Purulent abscess: Admission and Anticipated Discharge Date Admission Date: April 12, 2020 Supervising Physician Co-Signing Physician Notes Patient seen and examined independently of PGY-2 Dr. Diaz. Agree with history, exam findings, assessment and plan of care with the following updates. In brief, Mr. Mills is a 75 year old male admitted with left septic olecranon bursitis. He was taken to the OR today with Dr. Lorenzana for I&D, bursectomy. In the recovery room, he became confused and combative. Left septic olecranon bursitis. Wound culture from the ED growing staph species. Another culture taken in the OR. Will continue dapto for now. Once speciation is complete, can switch to oral antibiotics for total of 7-10 days. Will continue to monitor in the post-operative period for delirium. COPD, chronic hypoxic resp failure on 4L chronically. Wheezing throughout. Continue home inhaler regimen. DM. A1C 8.0. Watch sugars. ssi. Other chronic issues are stable and home medications continued. Dispo: pending clinical improvement and ortho post-operative recommendations. Subjective no acute events overnight. Ortho saw him this morning - plans to take to OR today for debridement. He reports minimal elbow pain. Review of Systems Musculoskeletal: + joint pain (left elbow) Physical Exam Constitutional: WD/WN, vitals as above cooperative; no acute distress Eyes: + anicteric sclerae ENMT: external ear and nose normal, oropharynx normal Neck: normal visual inspection and trachea midline Respiratory: normal respiratory effort; no respiratory distress and no cough Auscultation: + wheezes (expiratory, appreciated diffusely through b/l lung garcia) Cardiovascular: RRR, no murmur, no edema Heart Sounds: normal S1 and normal S2 Gastrointestinal (Abdomen): Inspection/Auscultation: abdomen normal to inspection and normal bowel sounds Musculoskeletal: Extremities: + elbow/forearm abnormality (patient able to full flex and extend L elbow) Left (open wound, covered with banadage, blood- tingued drainage, no purulence ) Skin: no rashes, warm and dry Psychiatric: A+Ox3, euthymic affect Results & Data Results & Data ([facility]) Vital Signs (Past 12 Hours) Vital Signs Temp Pulse Pulse Resp BP Pulse Ox 04/13/20 06:11 71 20 93 04/13/20 04:32 78 04/13/20 04:27 36.6 C 70 20 124/65 95 04/13/20 03:10 75 18 93 04/12/20 23:25 36.5 C 74 20 120/64 94 04/12/20 22:45 82 20 91 04/12/20 19:32 36.7 C 76 20 136/64 93 Resident Activity Tracking Resident Involvement: Resident Care Provided Care Provided: Adult Hospital Medicine (1) BPH (benign prostatic hyperplasia) Lower urinary tract symptom presence: symptoms absent Qualified Code(s): N40.0 - Benign prostatic hyperplasia without lower urinary tract symptoms (2) COPD (chronic obstructive pulmonary disease) COPD type: COPD with acute exacerbation Qualified Code(s): J44.1 - Chronic obstructive pulmonary disease with (acute) exacerbation (3) Hypertension Hypertension type: essential hypertension Qualified Code(s): I10 - Essential (primary) hypertension
[2020-04-13] MEDS: PRAMIPEXOLE DIHYDROCHLO 0.5 MG TAB PO SCH (07:26)
[2020-04-13] MEDS: FLUTICASONE/VILANTEROL 200/25MCG 14 PUFFS/INHALER INH SCH (07:26)
[2020-04-13] MEDS: CYANOCOBALAMIN 500 MCG TABLET (VITAMIN B-12) PO SCH (07:26)
[2020-04-13] MEDS: guaiFENesin 600 MG TABCR PO SCH (07:26)
[2020-04-13] MEDS: FUROSEMIDE 20 MG TAB PO SCH (07:26)
[2020-04-13] MEDS: buPROPion XL 150 MG TABCR PO SCH ×2 (07:26→21:10)
[2020-04-13] MEDS: carvediloL 12.5 MG TAB PO SCH ×2 (07:27→21:04)
[2020-04-13] MEDS: ASPIRIN 81 MG ECTAB PO SCH (07:27)
[2020-04-13] MEDS: LOSARTAN POTASSIUM 25 MG TAB PO SCH (07:27)
[2020-04-13] MEDS: INSULIN ASPART 100 UNITS/ML 3 ML PEN SC SCH ×4 (07:29→21:05)
[2020-04-13] MEDS ORDERED: DAPTOmycin 300 MG in SYRINGE 0 ML IV SCH (09:00)
[2020-04-13 09:08] LABS: Estimated Average Glucose 183 mg/dl
[2020-04-13] MEDS ORDERED: MIDAZOLAM HCL 1 MG/ML 2ML VIAL ONE (09:55)
[2020-04-13] MEDS ORDERED: LIDOCAINE HCL 2% 2 ML VIAL/AMP(20MG/ML) INFIL ONE (09:55)
[2020-04-13] MEDS ORDERED: fentaNYL citrate 100 MCG/2 ML VIAL ONE ×2 (09:55→13:58)
[2020-04-13] MEDS ORDERED: PROPOFOL IV EMULSION 10 MG/ML 20 ML VIAL IV ONE (09:55)
[2020-04-13] MEDS ORDERED: ONDANSETRON INJ 2 MG/ML 2 ML VIAL ONE (09:55)
--- NOTE | 2020-04-13 10:07 | Anesthesiology Consultation ---
Date of Service April 13, 2020 Assessment & Plan Chart Review Chart Review: Acceptable Risk for Surgery and Patient NOT seen in Pre Admission Testing Consults Requested none ASA ASA4 Proposed Anesthesia Anesthesia Type: General History Surgery Operation Date: 04/13/20 09:20 Proposed Procedures p Left Septic Olecranon Bursa Incision and Drainage - Soy Lorenzana MD Height/Weight Height: 6 ft Weight: 117.7 kg Allergies Allergy/AdvReac Type Severity Reaction Status Date / Time No Known Drug Allergies Allergy Verified 02/18/20 10:30 Medications Home Medications Medication Instructions Recorded Confirmed Last Taken aspirin 81 mg PO QAM 08/21/18 04/12/20 04/12/20 cholecalciferol (vitamin D3) 1,000 unit PO HS 08/21/18 04/12/20 04/12/20 [Vitamin D3] cyanocobalamin (vitamin B-12) 500 mcg PO QAM 08/21/18 04/12/20 04/12/20 [Vitamin B-12] silodosin [Rapaflo] 8 mg PO QPM 08/21/18 04/12/20 04/12/20 guaifenesin 600 mg tablet, 600 mg PO DAILY tab 02/03/19 04/12/20 04/12/20 extended release 12 hr atorvastatin 40 mg tablet 40 mg PO HS #90 tab 03/27/19 04/12/20 04/11/20 BD SafetyGlide Insulin Syringe 0.3 #400 ea NS 03/28/19 02/18/20 Unknown mL 31 gauge x 5/16" Novolog U-100 Insulin aspart 100 See Rx Instructions SUBCUT 03/28/19 04/12/20 04/12/20 unit/mL subcutaneous solution .COMPLEX #5 vial NS Contour Next Test Strips #400 ea NS 03/31/19 02/18/20 Unknown insulin syr/ndl U100 half shannan 0.3 #3 box 03/31/19 02/18/20 Unknown mL 31 gauge x 5/16" lancets #4 box 03/31/19 02/18/20 Unknown pramipexole 0.5 mg tablet 0.5 mg PO DAILY #90 tab 07/08/19 04/12/20 04/12/20 Oxygen Home #1 ea 08/21/19 02/18/20 Unknown fluticasone 250 mcg-salmeterol 50 1 puffs INHALATION BID #60 ea 05/18/20 11/30/20 11/30/20 mcg/dose blistr powdr for inhalation metformin 1,000 mg tablet 1,000 mg PO BID #180 tab 09/29/19 04/12/20 04/12/20 losartan 25 mg tablet 25 mg PO DAILY #90 tab 11/21/19 04/12/20 04/12/20 tiotropium bromide 2.5 2 puff INHALATION QAM #12 gm 11/21/19 04/12/20 04/12/20 mcg/actuation mist for inhalation nebulizer accessories #1 ea 11/24/19 02/18/20 Unknown nebulizers #1 ea 11/24/19 02/18/20 Unknown nebulizers #1 ea 12/24/19 02/18/20 Unknown bupropion HCl 150 mg 24 hr tablet, 150 mg PO BID #60 tab 01/20/20 04/12/20 04/12/20 extended release carvedilol 12.5 mg tablet 12.5 mg PO BID #180 tab 02/09/20 04/12/20 04/12/20 pen needle, diabetic 31 gauge x #90 ea 02/09/20 02/18/20 Unknown 5/16" ipratropium 0.5 mg-albuterol 3 mg 3 ml INHALATION Q4H 30 Days #180 02/12/20 04/12/20 Unknown (2.5 mg base)/3 mL nebulization vial soln furosemide 20 mg tablet 20 mg PO DAILY #30 tab 03/25/20 04/12/20 04/12/20 insulin NPH isoph U-100 human 40 unit SUBCUT HS 04/12/20 04/12/20 04/11/20 [Humulin N NPH U-100 Insulin] liraglutide [Victoza 3-Kalpesh] 0.6 mg SUBCUT DAILY 04/12/20 04/12/20 04/12/20 Active Medications Generic Name Dose Route Start Last Admin Trade Name Freq PRN Reason Stop Dose Admin Albuterol 1 puffs 04/12/20 18:00 04/13/20 10:04 Albuterol Hfa 8 Gm Inhaler (Combivent Respimat P&T Subs) INH 05/12/20 17:59 1 puffs Q4R ABDULLAHI Administration Aspirin 81 mg 04/13/20 09:00 04/13/20 07:27 Aspirin 81 Mg Ectab PO 05/13/20 08:59 81 mg QAM ABDULLAHI Administration Atorvastatin Calcium 40 mg 04/12/20 21:00 04/12/20 20:30 Atorvastatin 40 Mg Tab PO 05/12/20 20:59 40 mg HS ABDULLAHI Administration Bupropion HCl 150 mg 04/12/20 21:00 04/13/20 07:26 Bupropion Xl 150 Mg Tabcr PO 05/12/20 20:59 150 mg BID ABDULLAHI Administration Carvedilol 12.5 mg 04/12/20 21:00 04/13/20 07:27 Carvedilol 12.5 Mg Tab PO 05/12/20 20:59 12.5 mg BID ABDULLAHI Administration Cyanocobalamin 500 mcg 04/13/20 09:00 04/13/20 07:26 Cyanocobalamin 500 Mcg Tablet (Vitamin B-12) PO 05/13/20 08:59 500 mcg QAM ABDULLAHI Administration Fluticasone/Vilanterol 1 puffs 04/13/20 09:00 04/13/20 07:26 Fluticasone/Vilanterol 200/25mcg 14 Puffs/Inhaler INH 05/13/20 08:59 1 puffs DAILY ABDULLAHI Administration Furosemide 20 mg 04/13/20 09:00 04/13/20 07:26 Furosemide 20 Mg Tab PO 05/13/20 08:59 20 mg DAILY ABDULLAHI Administration Guaifenesin 600 mg 04/13/20 09:00 04/13/20 07:26 Guaifenesin 600 Mg Tabcr PO 05/13/20 08:59 600 mg DAILY ABDULLAHI Administration Sodium Chloride 1,000 mls @ 80 mls/hr 04/13/20 00:01 04/13/20 09:56 1/2 Nss IV 05/13/20 00:00 0 mls/hr .[id number] ABDULLAHI Infusion Insulin Aspart 0 units 04/12/20 16:42 04/13/20 07:29 Insulin Aspart 100 Units/Ml 3 Ml Pen SC 05/12/20 16:41 1 units ACHS ABDULLAHI Administration Ipratropium [place] 1 puffs 04/12/20 18:00 04/13/20 10:04 Ipratropium Hfa Inhaler (Combivent Respimat P&T Subs) INH 05/12/20 17:59 1 puffs Q4R ABDULLAHI Administration Losartan Potassium 25 mg 04/13/20 09:00 04/13/20 07:27 Losartan Potassium 25 Mg Tab PO 05/13/20 08:59 25 mg DAILY ABDULLAHI Administration Miscellaneous 1 ea 04/13/20 00:00 04/13/20 07:21 Order Awaiting Action ((Silodosin [Rapaflo] 8 Mg Capsule) N/A 05/13/20 00:00 Not Given QS ABDULLAHI Pramipexole Dihydrochloride 0.5 mg 04/13/20 09:00 04/13/20 07:26 Pramipexole Dihydrochlo 0.5 Mg Tab PO 05/13/20 08:59 0.5 mg DAILY ABDULLAHI Administration Vitamin D 1,000 units 04/12/20 21:00 04/12/20 20:30 Cholecalciferol 1,000 Units 25 Mcg Tab PO 05/12/20 20:59 1,000 units HS ABDULLAHI Administration Protocol Past Medical History Medical History Anxiety Anxiety Asymmetrical right sensorineural hearing loss BPH (benign prostatic hyperplasia) BPH with urinary obstruction CAD (coronary artery disease) mild, diffuse disease, 2007 Cardiomyopathy transient idiopathic. EF 35-40% in 2007, improved to 50-55% in September 2016 Cardiomyopathy Controlled type 2 diabetes mellitus with neurologic complication, with long-term current use of insulin COPD (chronic obstructive pulmonary disease) inhalers daily/prn, nebulizer Depression Diabetes type 2, controlled Diabetic peripheral neuropathy Dysesthesia Dyslipidemia GERD without esophagitis Hearing deficit Hyperlipidemia Hypertension Lumbosacral radiculopathy Obesity, Class II, BMI 35-39.9 On home oxygen therapy 3L N/C at all times Osteoarthritis Peripheral neuropathy bilt legs Polyp of sigmoid colon Sleep disturbance Spinal stenosis Tubular adenoma of colon Vitamin D deficiency Exercise / Class Metabolic Activity III < 4 Walking/Shop/Light housework Past Family History Family History Father Family history of diabetes mellitus Sister Family history of diabetes mellitus 2 Brother Family history of diabetes mellitus Daughter Melanoma Other No family history of adverse response to anesthesia Denies family history of Colon cancer Ovarian cancer Prostate cancer Myocardial infarction Breast cancer Past Surgical History Surgical History History of arthroscopy of right shoulder History of bilateral cataract extraction History of left inguinal hernia repair x2 History of left knee surgery History of lumbar surgery History of prostate surgery History of sinus surgery History of tooth extraction Past Anesthesia History No Hx of Anesthesia Complications and No Family Hx of Anesthesia Complications History of PONV No Hx of PONV and No Hx of Motion Sickness Social History Smoking Status: Current every day smoker tobacco type: cigarettes Do You Dip or Chew Tobacco: No Hx Alcohol Use: No Hx Substance Use: No substance use type: does not use Physical Exam Vital Signs Last Vital Signs Temp 36.7 C 04/13/20 07:21 Pulse 93 H 04/13/20 07:21 Resp 22 04/13/20 10:05 BP 176/50 H 04/13/20 07:21 Pulse Ox 95 04/13/20 10:05 Testing Laboratory Results 04/12/20 12:36 04/12/20 12:36 Hemoglobin A1c 8.0 % (4.5-5.6) H 04/13/20 07:08 04/12/20 12:36 Gram Stain - Final Elbow Wound Culture - Preliminary Staphylococcus species 04/13/20 04/12/20 07:21 22:43 POC Glucose 163 H 148 H Echocardiogram Date: 08/23/18 EF: 60% LV Function: normal RWMA: + none Other Findings: + atrial enlargement (mild biatrial enlargement), + LVH (mild) and + diastolic dysfunction (grade 1) Valvular Disease: + no significant valvular disease
[2020-04-13] MEDS ORDERED: BACITRACIN INJ 50,000 UNIT VIAL ONE (10:46)
--- NOTE | 2020-04-13 11:17 | History & Physical Bridge Note ---
Date of Service April 13, 2020 History & Physical Bridge Note I have examined the patient, reviewed the History & Physical and in the interval since the performance of the History & Physical I have noted the following changes of clinical significance: no changes noted
--- NOTE | 2020-04-13 11:19 | XRay Report ---
XR chest 1V portable HISTORY: Shortness of breath. COPD. Congestive heart failure. COMPARISON: Chest 08/20/2018. FINDINGS: The cardiac silhouette is normal in size. No pleural effusions. No pneumothorax. No focal l roshan consolidations to suggest pneumonia. No evidence for pulmonary edema. A few bibasilar linear dens ities favor subsegmental atelectasis or scarring. This is similar to the prior study. Mild emphysema. IMPRESSION: No significant change compared to the prior study. No acute process. Emphysema. ACT 112: Negative or not required by law. Electronically signed by: Greg Lewis M.D. 04/13/2020 11:17 AM
[2020-04-13] MEDS ORDERED: ROCURONIUM BROMIDE 10 MG/ML 5 ML VIAL IV ONE (11:44)
[2020-04-13] MEDS ORDERED: DEXAMETHASONE SOD INJ 4 MG/ML VIAL ONE (11:44)
[2020-04-13] MEDS ORDERED: ePHEDrine sulfate 50 MG/ML SYR ONE (11:44)
[2020-04-13] MEDS ORDERED: PHENYLEPHRINE 100MCG/ML 5ML SYR ONE (11:44)
[2020-04-13] MEDS ORDERED: SUCCINYLCHOLINE CHLORIDE 20 MG/ML 10 ML VIAL IV ONE (11:44)
[2020-04-13] MEDS ORDERED: PHENYLEPHRINE HCL 10 MG/ML VIAL ONE (11:52)
[2020-04-13] MEDS ORDERED: ALBUTEROL HFA INHALER 8.5 GM ONE (12:16)
--- NOTE | 2020-04-13 12:39 | Operative Report ---
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 Over the past week it is swollen and started draining some. He continued to pick adnexa use some scissors to open it up. He presented emergency room with a draining wound. He was admitted by the medicine service. He was indicated for irrigation debridement of a septic olecranon bursitis. Description of Procedure The patient was taken to the operating identified and placed on the operating table supine position but all contact areas were properly padded. IV antibiotics tried by anesthesia team. A general anesthetic was employed by anesthesia team. A left upper extremity tourniquet was placed. Left arm was then prepped and draped in usual sterile fashion. Left arm was elevated exsanguinated with use of an Esmarch and turns placed at 250 mmHg. Longitudinal incision was made over the posterior aspect of the elbow/olecranon area. I assessed the tissues at this point after making the incision and felt I could ellipse the fairly large sinus tract tissue and degraded tissue. Therefore I made a elliptical incision around the sinus tract excising the entire tract and extending this distally about 4 cm in proximal and about 5 cm. The underlying bursa was identified. I excised this completely. I then used a curette to curette the posterior aspect of the olecranon and then used a rongeur to debride all necrotic and fibrinous tissue. I then irrigated the wound with 3 L of pulsatile lavage solution. The tourniquet was then let down for turn time 12 minutes. Hemostasis assured use electrocautery. The skin was then closed with a combination #1 Prolene suture in a simple fashion and 3-0 nylon sutures in a simple fashion. Arm was then cleaned and dried a sterile dressing composed Xeroform, 4 x 4's, sterile cast padding, several ABD pads, posterior splint and an Sorin bandage with the elbow in about 80 degrees of flexion followed by a sling. The patient then brought out of general incision transferred to the recovery room in stable condition. Patient tolerated procedure well and there were no complications. Denzel De Leon, my physician review assistant, was present for the entire procedure. His assistance was required for appropriate patient positioning, prepping and draping, surgical exposure, debridement of the wound, retraction, closure of the wound, and placement of the postoperative splint and sling. I attest to the content of the Intraoperative Record and any orders documented therein. Any exceptions are noted below.
[2020-04-13] MEDS ORDERED: DAPTOmycin 375 MG in SYRINGE 0 ML IV SCH (13:00)
[2020-04-13] MEDS ORDERED: ONDANSETRON INJ 2 MG/ML 2 ML VIAL IV PRN ×2 (13:44→15:06)
[2020-04-13] MEDS ORDERED: ePHEDrine sulfate 50 MG/ML AMP IV PRN (13:44)
[2020-04-13] MEDS ORDERED: PROMETHAZINE HCL 12.5 MG in SODIUM CHLORIDE 0.9% 50 ML IV PRN (13:44)
[2020-04-13] MEDS ORDERED: ATROPINE SULFATE 0.1 MG/ML 10ML SYR IV PRN (13:44)
[2020-04-13] MEDS ORDERED: FLUMAZENIL 0.1 MG/1 ML 10 ML VIAL IV PRN (13:44)
[2020-04-13] MEDS ORDERED: LABETALOL HCL IV 5 MG/ML 20ML IV PRN (13:44)
[2020-04-13] MEDS ORDERED: KETOROLAC 30 MG/ML VIAL IV PRN (13:44)
[2020-04-13] MEDS ORDERED: NALOXONE HCL 0.4 MG/1 ML VIAL/CARP IV PRN ×2 (13:44→15:06)
[2020-04-13] MEDS: fentaNYL citrate 100 MCG/2 ML VIAL IV PRN ×2 (13:59→14:20)
[2020-04-13] MEDS ORDERED: ALBUTEROL 0.083% NEBU SOLN 3 ML VIAL NEB STA (14:10)
--- NOTE | 2020-04-13 14:45 | Anesthesiology Progress Note ---
Date of Service April 13, 2020 Anesthesia Post Procedure Vital Signs Vital Signs: Temp Pulse Pulse Pulse Resp BP BP 04/13/20 14:30 90 21 04/13/20 14:25 97 H 22 04/13/20 14:20 93 H 27 H 04/13/20 14:10 96 H 18 04/13/20 14:00 100 H 29 H 04/13/20 13:50 36.3 C L 107 H 28 H 04/13/20 10:24 36.6 C 73 20 121/69 04/13/20 10:05 22 04/13/20 07:21 36.7 C 93 H 18 04/13/20 06:11 71 20 04/13/20 04:32 78 04/13/20 04:27 36.6 C 70 20 124/65 04/13/20 03:10 75 18 04/12/20 23:25 36.5 C 74 20 120/64 04/12/20 22:45 82 20 04/12/20 19:32 36.7 C 76 20 136/64 04/12/20 18:06 78 20 04/12/20 18:03 88 04/12/20 16:45 36.7 C 92 H 20 04/12/20 16:00 82 24 04/12/20 15:15 163/82 H 04/12/20 15:14 87 22 BP Pulse Ox 04/13/20 14:30 126/66 94 04/13/20 14:25 94 04/13/20 14:20 139/88 99 04/13/20 14:10 124/83 98 04/13/20 14:00 171/82 H 99 04/13/20 13:50 144/121 H 99 04/13/20 10:24 96 04/13/20 10:05 95 04/13/20 07:21 176/50 H 91 04/13/20 06:11 93 04/13/20 04:32 04/13/20 04:27 95 04/13/20 03:10 93 04/12/20 23:25 94 04/12/20 22:45 91 04/12/20 19:32 93 04/12/20 18:06 93 04/12/20 18:03 04/12/20 16:45 167/81 H 93 04/12/20 16:00 157/82 H 96 04/12/20 15:15 98 04/12/20 15:14 163/82 H 97 Pain Intensity Left Arm: Pain Intensity: 4 Transfer of Care Handoff Completed per policy Notes Mental Status: alert / awake / arousable Patient Amnestic to Procedure: Yes Nausea / Vomiting: adequately controlled Pain: adequately controlled Airway Patency, RR, SpO2: stable & adequate BP & HR: stable & adequate Hydration State: stable & adequate Anesthetic Complications: no major complications apparent
[2020-04-13] MEDS ORDERED: METOCLOPRAMIDE HCL INJ 5 MG/ML 2 ML VIAL IV PRN (15:06)
[2020-04-13] MEDS ORDERED: bisacodyL 10 MG SUPP PR PRN (15:06)
[2020-04-13] MEDS ORDERED: MAGNESIUM HYDROXIDE SUSP 30 ML UDC PO PRN (15:06)
[2020-04-13] MEDS ORDERED: ALUMINUM/MAGNESIUM SUSP 30 ML UDC PO PRN (15:06)
--- NOTE | 2020-04-13 15:36 | Electrocardiogram Report ---
Test Reason : Blood Pressure : / mmHG Vent. Rate : 067 BPM Atrial Rate : 067 BPM P-R Int : 156 ms QRS Dur : 134 ms QT Int : 398 ms P-R-T Axes : 066 030 072 degrees QTc Int : 420 ms Normal sinus rhythm Right bundle branch block Abnormal ECG Confirmed by Morales Canales ([id number]) on 04/13/2020 3:36:23 PM Referred By: REFERRED SELF Confirmed By:Ulises Canales
[2020-04-13] MEDS: SODIUM CHLORIDE 0.9% 1000ML 1,000 ML IV SCH (15:43)
[2020-04-13] MEDS: DOCUSATE SODIUM 100 MG CAP PO SCH (21:04)
[2020-04-13] MEDS: ATORVASTATIN 40 MG TAB PO SCH (21:04)
[2020-04-13] MEDS: CHOLECALCIFEROL 1,000 UNITS 25 MCG TAB PO SCH (21:09)
[2020-04-13] MEDS: SENNA 8.6 MG TAB PO SCH (21:09)
[2020-04-14] MEDS: SODIUM CHLORIDE 0.9% 1000ML 1,000 ML IV SCH ×2 (01:06→13:57)
[2020-04-14] MEDS: Albuterol HFA 8 GM Inhaler (Combivent Respimat P&T Subs) INH SCH ×6 (02:19→23:10)
[2020-04-14] MEDS: Ipratropium HFA Inhaler (Combivent Respimat P&T Subs) INH SCH ×6 (02:19→23:10)
[2020-04-14] MEDS: buPROPion XL 150 MG TABCR PO SCH ×2 (08:31→20:51)
[2020-04-14] MEDS: CYANOCOBALAMIN 500 MCG TABLET (VITAMIN B-12) PO SCH (08:31)
[2020-04-14] MEDS: PRAMIPEXOLE DIHYDROCHLO 0.5 MG TAB PO SCH (08:32)
[2020-04-14] MEDS: ASPIRIN 81 MG ECTAB PO SCH (08:32)
[2020-04-14] MEDS: FUROSEMIDE 20 MG TAB PO SCH (08:32)
[2020-04-14] MEDS: carvediloL 12.5 MG TAB PO SCH ×2 (08:33→20:51)
[2020-04-14] MEDS: guaiFENesin 600 MG TABCR PO SCH (08:33)
[2020-04-14] MEDS: DOCUSATE SODIUM 100 MG CAP PO SCH ×2 (08:33→20:51)
[2020-04-14] MEDS: MULTIVITAMIN TAB PO SCH (08:33)
[2020-04-14] MEDS: FLUTICASONE/VILANTEROL 200/25MCG 14 PUFFS/INHALER INH SCH (08:33)
[2020-04-14 08:36] LABS: Basophils # (auto) 0.02 K/uL (0-0.2); Basophils % (auto) 0.2 %; Eosinophils # (auto) 0.02 K/uL (0-0.5); Eosinophils % (auto) 0.2 %; Hematocrit (blood only) 36.7 % (42-52); Hemoglobin 11.5 g/dL (14.0-18.0); Immature Granulocytes # (auto) 0.03 K/uL (0.00-0.02); Immature Granulocytes % (auto) 0.3 %; Lymphocytes # (auto) 1.56 K/uL (1.2-3.4); Lymphocytes % (auto) 13.4 %; Mean Corpuscular Hemoglobin 29.9 pg (25-34); Mean Corpuscular Hgb Conc 31.3 g/dL (32-36); Mean Corpuscular Volume 95.6 fL (80-100); Mean Platelet Volume 9.4 fL (7.4-10.4); Monocytes # (auto) 0.97 K/uL (0.11-0.59); Monocytes % (auto) 8.3 %; Neutrophils # (auto) 9.02 K/uL (1.4-6.5); Neutrophils % (auto) 77.6 %; Platelet Count 303 K/uL (130-400); RDW Coefficient of Variation 13.1 % (11.5-14.5); RDW Standard Deviation 45.8 fL (36.4-46.3); Red Blood Count 3.84 M/uL (4.7-6.1); White Blood Count 11.62 K/uL (4.8-10.8)
[2020-04-14] MEDS: INSULIN ASPART 100 UNITS/ML 3 ML PEN SC SCH ×4 (08:36→20:52)
[2020-04-14] MEDS: LOSARTAN POTASSIUM 25 MG TAB PO SCH (08:37)
[2020-04-14] MEDS: ceFAZolin 2000MG 2,000 MG/15 ML SYR IV SCH ×2 (11:00→20:49)
--- NOTE | 2020-04-14 11:02 | Hospitalist Progress Note ---
Date of Service April 14, 2020 Assessment & Plan (1) Chronic respiratory failure with hypoxia: Pelon Mills is a 75 year old man with PMH COPD, CAD, DMII who presents with a left olecranon bursitis abscess. He is currently POD 1 of incision and drainage. Wound culture growing MSSA - antibiotics downgraded from daptomycin to cefazolin. Left olecranon bursitis abscess - POD 1 after incision and drainage by ortho - prior to admission, patient manually attempted to open swollen bursa with a pair of kitchen scissors - use of non-sterile equipment undoubtedly nidus for infection - XR of elbow showing moderate dorsal soft tissue swelling with cutaneous ulceration superficial to the olecranon process - Wound culture obtained on admission, growing rodriguez sensitive MSSA - patient initially started on ceftriaxone and daptomycin. Ceftriaxone discontinued after one dose. Continue Daptomycin discontinued today in favor of Cefazolin. Plan to transition to oral cephalexin. - WBC normal. afebrile, hemodynamically stable. no concern for sepsis - wound care following COPD - Stable, no concern for exacerbation - expiratory wheezes appreciated on exam - combivent q4h scheduled - Currently saturating 91% on 4L via [place] (home requirement) HTN - Continue home coreg and losartan - BP 119/68 on exam today Dyslipidemia - restart atorvastatin as daptomycin is now d/c BPH - Continue home rapaflo DMII - HbA1c at 8.0 - hold home oral agents - basal/bolus insulin prn while inpatient Restless Leg Syndrome - Continue home pramipexole DVT PPx: SCDs, Lovenox F/E/N: NPO, with upcoming surgery Dispo: med/surg Code: Full Code (2) PVD (peripheral vascular disease): (3) Anxiety: (4) Asymmetrical right sensorineural hearing loss: (5) Cardiomyopathy: (6) Controlled type 2 diabetes mellitus with neurologic complication, with long- term current use of insulin: (7) Dyslipidemia: (8) Obesity, Class II, BMI 35-39.9: (9) COPD (chronic obstructive pulmonary disease): (10) Hypertension: (11) BPH (benign prostatic hyperplasia): (12) Restless leg syndrome: (13) Olecranon bursa abscess: (14) Purulent abscess: Admission and Anticipated Discharge Date Admission Date: April 12, 2020 Supervising Physician Co-Signing Physician Notes Patient seen and examined independently of PGY-2 Dr. Diaz. Agree with history, exam findings, assessment and plan of care as outlined. In brief, Mr. Mills is a 75 year old male admitted with left septic olecranon bursitis. He was taken to the OR yesterday with Dr. Lorenzana for I&D, bursectomy. No complaints today except that the sling is uncomfortable so he is not wearing it. Left septic olecranon bursitis. Wound culture from the ED growing staph aureus. Another culture taken in the OR growing staph species. Switched from dapto to keflex. Total antibiotic course 7-10 days. COPD, chronic hypoxic resp failure on 4L chronically. Wheezing throughout. Continue home inhaler regimen. DM. A1C 8.0. Watch sugars. ssi. Other chronic issues are stable and home medications continued. Dispo: pending ortho post-operative recommendations for wound care and follow up. Subjective Patient doing well this morning. Elbow is mildly painful - but at an acceptable level. Eating and drinking well. Review of Systems Musculoskeletal: + joint pain (left elbow) Physical Exam Constitutional: WD/WN, vitals as above cooperative; no acute distress Eyes: + anicteric sclerae ENMT: external ear and nose normal, oropharynx normal Neck: normal visual inspection and trachea midline Respiratory: normal respiratory effort; no respiratory distress and no cough Auscultation: + wheezes (expiratory, appreciated diffusely through b/l lung garcia) Cardiovascular: RRR, no murmur, no edema Heart Sounds: normal S1 and normal S2 Gastrointestinal (Abdomen): Inspection/Auscultation: abdomen normal to ins pection and normal bowel sounds Musculoskeletal: Extremities: + elbow/forearm abnormality (soft cast in place) Left Skin: no rashes, warm and dry Psychiatric: A+Ox3, euthymic affect Results & Data Results & Data ([facility]) Vital Signs (Past 12 Hours) Vital Signs Temp Pulse Pulse Pulse Resp BP Pulse Ox 04/14/20 08:42 109 H 23 90 04/14/20 08:05 36.5 C 75 18 138/76 97 04/14/20 07:45 65 04/14/20 04:00 36.5 C 70 19 130/71 95 04/14/20 02:19 82 16 93 04/14/20 00:47 66 04/13/20 23:18 36.6 C 76 21 119/60 95 04/13/20 23:14 75 18 92 Resident Activity Tracking Resident Involvement: Resident Care Provided Care Provided: Adult Hospital Medicine (1) BPH (benign prostatic hyperplasia) Lower urinary tract symptom presence: symptoms absent Qualified Code(s): N40.0 - Benign prostatic hyperplasia without lower urinary tract symptoms (2) COPD (chronic obstructive pulmonary disease) COPD type: COPD with acute exacerbation Qualified Code(s): J44.1 - Chronic obstructive pulmonary disease with (acute) exacerbation (3) Hypertension Hypertension type: essential hypertension Qualified Code(s): I10 - Essential (primary) hypertension
[2020-04-14] MEDS: ENOXAPARIN INJ 40 MG/0.4 ML SYR SQ SCH (13:56)
[2020-04-14] MEDS ORDERED: MELATONIN 3 MG TAB PO PRN (17:22)
--- NOTE | 2020-04-14 19:49 | Progress Notes ---
DATE: 04/14/2020 SUBJECTIVE: A 75-year-old gentleman postop day 1 from I and D and excision of septic olecranon bursitis. He is doing pretty well from the pain standpoint. He is bothered by the splint. No other complaints. OBJECTIVE: VITAL SIGNS: Temperature 36.6. Vital signs stable. GENERAL: Shows a relatively pleasant elderly male. He is hard of hearing. EXTREMITIES: Examination of left arm reveals the dressing to be in place. He has clearly been moving his arm around a lot as the splint is straightened out some. There are no signs of drainage. Some mild hand swelling. He can flex and extend his fingers appropriately. LABORATORY DATA: Culture results are growing out methicillin-sensitive Staph aureus. ASSESSMENT: A 75-year-old gentleman postoperative day 1 from incision and drainage and excision of septic olecranon bursitis. Compliance is going to be an issue with this gentleman. He really needs to keep this immobilized to get this to heal, but this can be difficult. He is going to need an extended course of likely antibiotics as well. PLAN: We are going to leave the splint on for today and likely change this tomorrow. I may actually put him in a cast as I think that is the only way I am going to be able to immobilize his elbow for a period of time. We would like to just let this wound heal for the next 2 weeks with limited motion. He is going to need probably anywhere from 2-4 weeks of antibiotics. He can be likely converted to p.o. antibiotics in the next day or so. We will change his bandage tomorrow. Any orthopedic questions can be directed to me at [phone].
[2020-04-14] MEDS: CHOLECALCIFEROL 1,000 UNITS 25 MCG TAB PO SCH (20:51)
[2020-04-14] MEDS: ATORVASTATIN 40 MG TAB PO SCH (20:51)
[2020-04-14] MEDS: SENNA 8.6 MG TAB PO SCH (20:51)
[2020-04-15] MEDS: Albuterol HFA 8 GM Inhaler (Combivent Respimat P&T Subs) INH SCH ×4 (02:20→16:16)
[2020-04-15] MEDS: Ipratropium HFA Inhaler (Combivent Respimat P&T Subs) INH SCH ×4 (02:20→16:17)
[2020-04-15] MEDS: ceFAZolin 2000MG 2,000 MG/15 ML SYR IV SCH ×2 (03:20→11:54)
[2020-04-15 06:23] LABS: Basophils # (auto) 0.03 K/uL (0-0.2); Basophils % (auto) 0.3 %; Eosinophils # (auto) 0.27 K/uL (0-0.5); Eosinophils % (auto) 2.7 %; Hematocrit (blood only) 36.8 % (42-52); Hemoglobin 11.6 g/dL (14.0-18.0); Immature Granulocytes # (auto) 0.03 K/uL (0.00-0.02); Immature Granulocytes % (auto) 0.3 %; Lymphocytes # (auto) 2.02 K/uL (1.2-3.4); Lymphocytes % (auto) 20.1 %; Mean Corpuscular Hemoglobin 30.1 pg (25-34); Mean Corpuscular Hgb Conc 31.5 g/dL (32-36); Mean Corpuscular Volume 95.3 fL (80-100); Mean Platelet Volume 9.1 fL (7.4-10.4); Monocytes # (auto) 1.09 K/uL (0.11-0.59); Monocytes % (auto) 10.8 %; Neutrophils # (auto) 6.61 K/uL (1.4-6.5); Neutrophils % (auto) 65.8 %; Platelet Count 309 K/uL (130-400); RDW Coefficient of Variation 13.1 % (11.5-14.5); RDW Standard Deviation 45.3 fL (36.4-46.3); Red Blood Count 3.86 M/uL (4.7-6.1); White Blood Count 10.05 K/uL (4.8-10.8)
[2020-04-15] MEDS: buPROPion XL 150 MG TABCR PO SCH (08:20)
[2020-04-15] MEDS: FLUTICASONE/VILANTEROL 200/25MCG 14 PUFFS/INHALER INH SCH (08:20)
[2020-04-15] MEDS: carvediloL 12.5 MG TAB PO SCH (08:21)
[2020-04-15] MEDS: DOCUSATE SODIUM 100 MG CAP PO SCH (08:21)
[2020-04-15] MEDS: LOSARTAN POTASSIUM 25 MG TAB PO SCH (08:21)
[2020-04-15] MEDS: FUROSEMIDE 20 MG TAB PO SCH (08:22)
[2020-04-15] MEDS: guaiFENesin 600 MG TABCR PO SCH (08:22)
[2020-04-15] MEDS: CYANOCOBALAMIN 500 MCG TABLET (VITAMIN B-12) PO SCH (08:22)
[2020-04-15] MEDS: MULTIVITAMIN TAB PO SCH (08:22)
[2020-04-15] MEDS: ASPIRIN 81 MG ECTAB PO SCH (08:23)
[2020-04-15] MEDS: INSULIN ASPART 100 UNITS/ML 3 ML PEN SC SCH ×3 (08:24→16:49)
[2020-04-15] MEDS: PRAMIPEXOLE DIHYDROCHLO 0.5 MG TAB PO SCH (09:01)
[2020-04-15] MEDS: ENOXAPARIN INJ 40 MG/0.4 ML SYR SQ SCH (12:53)
--- NOTE | 2020-04-15 14:59 | Progress Notes ---
DATE: 04/15/2020 SUBJECTIVE: A 75-year-old gentleman postop day 2 from I and D and excision of a septic olecranon bursa. He is doing pretty well. He is not tolerating the splint very well as it has caused some wrist pain. He is not wearing the sling at all. No other complaints. Really no elbow pain. OBJECTIVE: VITAL SIGNS: Temperature 36.6. Vital signs stable. EXTREMITIES: Physical examination of the left arm with the splint removed reveals the incision to be well approximated. Not a lot of swelling. No signs of major drainage. Minimal cellulitis. He is neurologically intact. LABORATORY DATA: Culture results show methicillin-sensitive Staph in both cultures. ASSESSMENT: A 75-year-old male postoperative day 2 from incision and drainage and excision of a septic olecranon bursitis. His wound looks pretty good and surprising considering all the arm motion that he has been doing. He is not tolerating the splint, so we are going to change him to a cast, that will take some of the pressure off his wrist. PLAN: We are going to change him to a cast today. I really think it is important to immobilize his elbow to get this to heal and I do not think there is any chance of him doing that on his own. We will place him in a cast today. I think he can be converted to oral antibiotics at any time and he will need probably 2-4 weeks of oral antibiotics most likely. I need to see him back in 2-3 weeks from the surgery date. I think he is okay for discharge at any time medically stable. Any orthopedic questions can be directed to me at [phone].
[2020-04-15 15:41] VITALS: BP 156/74; TEMP 98.4; O2SAT 94
--- NOTE | 2020-04-15 15:47 | Discharge Summary ---
Date of Service April 15, 2020 Admission HPI Per Admitting Provider Pelon Mills is a 75 year old man with a past medical history significant for COPD (current every day 1/2 pack smoker on 3-4 L O2 at home), DMII (A1C consistently below 7), peripheral vascular disease, HTN, non ischemic cardiomyopathy most recent echo with EF of 45%, history of catheterization with some atherosclerotic disease not requiring stenting and without angina, anemia, BPH, and obesity who presents to the emergency department today secondary to a wound on his left elbow. Patient has been dealing with this area for several months, initially he had a dry skin patch which became a large callous. This john lous then became enlarged swollen red and tender. This opened up yesterday with bloody and suppurative discharge and patient says it has been draining yellow green pus like fluid as well as blood. He admits to picking at the area incessantly and says he even used scissors to remove a piece of his tissue in the area. He denies any systemic symptoms, no fevers, chills, sweats, weight gain, weight loss, nausea, vomiting, diarrhea, chest pain, shortness of breath (beyond his usual) spreading red rash, pain of underlying arm, or loss of fucntion of affected arm. Patient has good mobility at the left elbow joint with a comparable range of motion to the right arm. Patient does have tenderness to palpation immediately around the wound, unable to see any bone in wound. Forearm and proximal arm without red rash or streaking, mild red rash and thickened skin around large (3-4 cm) wound with some heat and tenderness compared to surrounding skin. On admission to the emergency department patient is stable with vitals significant for hypertension, and hypoxia at baseline, oxygenating well on 4L of home O2. He denies any other complaints than the elbow. Labwork significant for normal white count, anemia with hemoglobin around 12, sodium of 134, Bun elevated to 26 creatinine of 1.28. COVID test negative. XR of the left elbow showing no acute fracture or dislocation, and ulceration with edema above bone, no obvious evidence of bony involvement. Patient was discussed with Dr. Huerta of OR orthopedic surgery who was agreeable to admitting the patient and evaluating for debridement of the wound. Patient is a long time smoker, did have a period of being tobacco free but started again after his about three years ago. He averages about a half a pack a day. non drinker no drug use. Patient would like to be a full code. Admission Exam Per Admitting Provider Constitutional: + obese, cooperative and comfortable; no acute distress, no altered mental status and not frail appearing very hard of hearing Eyes: PERRL, conjunctivae normal, anicteric sclerae ENMT: external ear and nose normal, oropharynx normal Respiratory: + labored breathing and + uses accessory muscles; no respiratory distress Auscultation: + diminished lung sounds, + rales and + wheezes end expiratory wheezes and diminished lung sounds globally rales at bases. Cardiovascular: Rate/Rhythm: regular rate and regular rhythm Heart Sounds: no click, no gallop, no murmur and no cardiac rub Vessels: no JVD Extremities: no calf tenderness Gastrointestinal (Abdomen): normal bowel sounds, soft, nontender, no hepatosplenomegaly Musculoskeletal: Range of motion on left almost equal to right, seemed to be slightly impaired in flexion by a handful of degrees and limited by swelling. Strength intact of musculature distal and proximal to the wound. Triceps function normal, palpation of proximal ulna or radius or distal humerus all without pain. Skin: large, (3-4cm) wound overlying olecranon process. Wound is deep with active oozing of blood and yellow tinged purulent materail. Wound is complex and extends below the skin proximally up the dorsal aspect of the arm. tender to touch, surrounding ring of erythematous tissue, no streaking, no evidence of any other cellulitis Neurologic: Patient neurovascularly intact distal to wound, radial ulnar and median nerves intact and functioning well. Principal Diagnosis Olecranon Bursa Abscess Discharge Exam Constitutional WD/WN, vitals as above cooperative; no acute distress Eyes + anicteric sclerae ENMT external ear and nose normal, oropharynx normal Neck normal visual inspection and trachea midline Respiratory normal respiratory effort; no respiratory distress and no cough Auscultation: + wheezes (expiratory, appreciated diffusely through b/l lung garcia) Cardiovascular RRR, no murmur, no edema Heart Sounds: normal S1 and normal S2 Gastrointestinal (Abdomen) Inspection/Auscultation: abdomen normal to inspection and normal bowel sounds Musculoskeletal Extremities: + elbow/forearm abnormality (fiberglass cast in place) Left Skin no rashes, warm and dry Psychiatric A+Ox3, euthymic affect Discharge Data Allergies Allergy/AdvReac Type Severity Reaction Status Date / Time No Known Drug Allergies Allergy Verified 02/18/20 10:30 Consultations 04/12/20 14:14 ED Decision to Admit Stat 04/12/20 16:42 Consult Orthopedic Surgery Routine 04/13/20 15:06 Consult Case Management - Discharge Planning Routine Procedures Performed Operation Date: 04/13/20 09:20 Actual Procedures p Incision and Drainage Left Olecranon Bursa(Left) - Soy Lorenzana MD Hospital Course (1) Chronic respiratory failure with hypoxia: Pelon Mills is a 75 year old man with PMH COPD, CAD, DMII who presents with a left olecranon bursitis abscess. He is currently POD 2 of incision and drainage and bursectomy. Wound culture growing MSSA - he was initially treated with IV cefazolin, transitioned to oral Kelfex on day of discharge. Left olecranon bursitis abscess - POD 2 after incision and drainage and bursectomy by ortho - prior to admission, patient manually attempted to open swollen bursa with a pair of kitchen scissors - use of non-sterile equipment undoubtedly nidus for infection - XR of elbow showing moderate dorsal soft tissue swelling with cutaneous ulceration superficial to the olecranon process - Wound culture obtained on admission, growing rodriguez sensitive MSSA. Treated with IV Cefazolin while in hospital - transitioned to oral Keflex on day of discharge. Orthopedics recommending extended 4 week course. - WBC normal. afebrile, hemodynamically stable. no concern for sepsis - fiberglass cast placed on day of discharge. Cast care hand out provided. Outpatient items to do: Patient was directed to follow up with Dr. Lorenzana at [facility] in 2-3 weeks after discharge. He was directed to complete and extended course of Kelfex, 500mg, QID for a total of 4 weeks. COPD - Stable, no concern for exacerbation - expiratory wheezes appreciated on exam - combivent q4h scheduled - patient saturated in 90s on home O2 requirement HTN - Continue home coreg and losartan - BP 119/68 on exam today Dyslipidemia - continue atorvastatin BPH - Continue home rapaflo DMII - HbA1c at 8.0 - patient had two hypoglycemic events while in hospital on basal + sliding scale insulin regimen - resume home regimen at discharge Restless Leg Syndrome - Continue home pramipexole (2) PVD (peripheral vascular disease): (3) Anxiety: (4) Asymmetrical right sensorineural hearing loss: (5) Cardiomyopathy: (6) Controlled type 2 diabetes mellitus with neurologic complication, with long- term current use of insulin: (7) Dyslipidemia: (8) Obesity, Class II, BMI 35-39.9: (9) COPD (chronic obstructive pulmonary disease): (10) Hypertension: (11) BPH (benign prostatic hyperplasia): (12) Restless leg syndrome: (13) Olecranon bursa abscess: (14) Purulent abscess: Total Time Total Time Spent Total Time Spent (In Minutes): see attending attestation Discharge Plan Discharge Items Patient Disposition: Home - Self-Care Reason For Visit: OLECRANON WOUND Discharge Diagnosis: Infection of Left Elbow Bursa Activity: Resume your previous activity Non-emergency contact: Primary Care Provider and Surgeon Call non-emergency contact if: your pain is not controlled and you have a fever Follow-up/Referrals: Natalia Dozier MD [Primary Care Provider] - Soy Lorenzana MD [Physician] - (Orthopedic follow-up 2-3 weeks from surgery date.) Diet: Heart Healthy Addtl Attending Provider Instructions: You were hospitalized at [facility] for evaluation of a left elbow wound that you attempted to cut open with a pair of scissors at home. Based on your description, it is likely the fluid filled sac overlying your el bow (known as your olecranon bursa) became inflamed (a condition known as olecranon bursitis) in the days preceding your hospital admission. By the time you came in for treatment, the elbow wound was draining pus, which was indicative of an infection. The cause of your infection was likely from piercing the skin with a pair of non-sterile scissors. Orthopedics was consulted and Dr. Vic Lorenzana took you to surgery to clean out the wound and remove the bursa. The surgery went well without any complications. You were also treated with antibiotics for the infection. Please continue to take the antibiotic Keflex, 500mg, 4 times daily (which is a total of 2 grams in 24 hours). Please follow up with Dr. Lorenzana at [facility] as directed in 2-3 weeks. Please see attached hand out for cast care instructions. Pending Studies at Discharge: No Stand-Alone Forms: My [facility], Smoking Cessation Medications and DC Order Prescriptions: New cephalexin [Keflex] 500 mg capsule 500 mg PO QID 25 Days Qty: 100 RF: 0 Continued atorvastatin 40 mg tablet 40 mg PO HS Qty: 90 RF: 3 (DME) insulin syringe-needle U-100 [BD SafetyGlide Insulin Syringe] 0.3 mL 31 gauge x 5/16" syringe See Dose Instructions .ROUTE .MEDSUPPLY Qty: 400 RF: 3 Novolog U-100 Insulin aspart 100 unit/mL solution See Rx Instructions subcut .COMPLEX Qty: 5 RF: 3 (DME) Contour Next Test Strips strip See Dose Instructions .ROUTE .MEDSUPPLY Qty: 400 RF: 3 (DME) BD Insulin Syringe Half Unit 0.3 mL 31 gauge x 5/16" syringe See Rx Instructions .ROUTE .MEDSUPPLY Qty: 3 RF: 3 (DME) lancets [Microlet Lancet] misc See Dose Instructions .ROUTE .MEDSUPPLY Qty: 4 RF: 3 pramipexole 0.5 mg tablet 0.5 mg PO DAILY Qty: 90 RF: 3 (DME) Oxygen Home Liters Per Minute See Dose Instructions .ROUTE .MEDSUPPLY Qty: 1 RF: 0 fluticasone propion-salmeterol [Advair Diskus] 250-50 mcg/dose blister with device 1 puffs inhalation BID Qty: 60 RF: 5 metformin 1,000 mg tablet 1,000 mg PO BID Qty: 180 RF: 3 losartan 25 mg tablet 25 mg PO DAILY Qty: 90 RF: 3 Spiriva Respimat 2.5 mcg/actuation mist 2 puff inhalation QAM Qty: 12 RF: 3 (DME) nebulizers Misc See Rx Instructions .ROUTE .MEDSUPPLY Qty: 1 RF: 0 (DME) nebulizer accessories Kit See Rx Instructions .ROUTE .MEDSUPPLY Qty: 1 RF: 0 (DME) nebulizers Misc See Rx Instructions .ROUTE .MEDSUPPLY Qty: 1 RF: 0 bupropion HCl 150 mg tablet extended release 24 hr 150 mg PO BID Qty: 60 RF: 5 carvedilol 12.5 mg tablet 12.5 mg PO BID Qty: 180 RF: 3 (DME) pen needle, diabetic [BD Ultra-Fine Short Pen Needle] 31 gauge x 5/16" needle See Dose Instructions .ROUTE .MEDSUPPLY Qty: 90 RF: 3 ipratropium-albuterol 0.5 mg-3 mg(2.5 mg base)/3 mL solution for nebulization 3 ml inhalation Q4H 30 Days Qty: 180 RF: 5 furosemide 20 mg tablet 20 mg PO DAILY Qty: 30 RF: 5 guaifenesin [Mucinex] 600 mg tablet extended release 12hr 600 mg PO DAILY RF: 0 aspirin 81 mg Tablet,Delayed Release (Dr/Ec) 81 mg PO QAM RF: 0 cyanocobalamin (vitamin B-12) [Vitamin B-12] 500 mcg Tablet 500 mcg PO QAM RF: 0 cholecalciferol (vitamin D3) [Vitamin D3] 1,000 unit Tablet 1,000 unit PO HS RF: 0 silodosin [Rapaflo] 8 mg capsule 8 mg PO QPM RF: 0 Humulin N NPH U-100 Insulin 100 unit/mL suspension 40 unit subcut HS RF: 0 Victoza 3-Kalpesh 0.6 mg/0.1 mL (18 mg/3 mL) pen injector 0.6 mg subcut DAILY RF: 0 Discharge Orders: Discharge Order (Routine); Ordered 04/15/20 Ordered By: Yojana Denis/Other Patient Handouts: Managing Type 2 Diabetes, Cast Care Admission Data Admit Date/Time: 04/12/20 15:13 Attending Provider: Melvi Hernadez Admit Provider: Raymon Fernandez Primary Care Provider: Natalia Dozier V. Other Providers: Dedrick Cook ; Vickey Huerta ; [facility] Other Interventions: Discharge Summary Assessment (RN) Last Done: 04/15/20 16:47 Supervising Physician Co-Signing Physician Notes Patient seen and examined independently of PGY-2 Dr. Diaz. Agree with history, exam findings, assessment and plan of care as outlined. In brief, Mr. Mills is a 75 year old male admitted with left septic olecranon bursitis. He was taken to the OR yesterday with Dr. Lorenzana for I&D, bursectomy. No complaints today except that the sling is uncomfortable so he is not wearing it. Left septic olecranon bursitis. Wound culture from the ED growing staph aureus. Another culture taken in the OR growing staph species. Switched from dapto to keflex. Will complete 4 week keflex course. Cast applied by ortho. He will follow up with ortho in a few weeks. COPD, chronic hypoxic resp failure on 4L chronically. Wheezing throughout. Continue home inhaler regimen. DM. A1C 8.0. Watch sugars. ssi. Did have hypoglycemia this afternoon that was corrected with orange juice. Other chronic issues are stable and home medications continued. Dispo: discharge home today I personally spent 35 minutes discharge planning for this patient. Resident Activity Tracking Resident Involvement: Resident Care Provided Care Provided: Adult Hospital Medicine
[2020-04-15 16:49] VITALS: PULSE 70
[2020-04-15] MEDS ORDERED: TAMSULOSIN HCL 0.4 MG CAP PO SCH (21:00)
== END 2020-04-15 18:00 | disposition home or self-care (01) | DRG 501 ==
LOC: ED 12:00 → 2W 15:13
DX: E11.51 Type 2 diabetes mellitus with diabetic peripheral angiopathy without gangrene; I42.8 Other cardiomyopathies; J44.1 Chronic obstructive pulmonary disease with (acute) exacerbation; I10 Essential (primary) hypertension; N40.0 Benign prostatic hyperplasia without lower urinary tract symptoms; G25.81 Restless legs syndrome; Z83.3 Family history of diabetes mellitus; E66.9 Obesity, unspecified; M00.822 Arthritis due to other bacteria, left elbow; E87.1 Hypo-osmolality and hyponatremia; H90.41 Sensorineural hearing loss, unilateral, right ear, with unrestricted hearing on the contralateral side; E11.610 Type 2 diabetes mellitus with diabetic neuropathic arthropathy; B95.61 Methicillin susceptible Staphylococcus aureus infection as the cause of diseases classified elsewhere; Z68.35 Body mass index [BMI] 35.0-35.9, adult; E78.5 Hyperlipidemia, unspecified; M70.22 Olecranon bursitis, left elbow; I25.10 Atherosclerotic heart disease of native coronary artery without angina pectoris; Z79.4 Long term (current) use of insulin; J96.11 Chronic respiratory failure with hypoxia; F17.210 Nicotine dependence, cigarettes, uncomplicated; L03.113 Cellulitis of right upper limb; K21.9 Gastro-esophageal reflux disease without esophagitis